=== PATIENT | female | born 1980 | race American Indian/Alaskan Native ===

== ENCOUNTER 2017-09-06 15:42 | Emergency (ER) | payer MEDICAID ==
[2017-09-06 15:50] VITALS: PULSE 89; TEMP 98.1
--- NOTE | 2017-09-06 16:13 | ED PDOC ---
Arrival/HPI - General Chief Complaint: Flu-like Symptoms Time Seen by Provider: 09/06/17 15:53 Historian: Patient - History of Present Illness Narrative History of Present Illness (Text): 09/06/17 16:09 89yo female with PMHx of hypertension and chronic back pain secondary to herniated disc present with few days history of lower back pain that radiates to her left lower leg. States she have had the back pain before, but not with radiation to lower extremity. Patient is crampy/sharp, with movement, 6/10. states she was taking OTC analgesic without relieve. Denies abdominal pain, trauma, ripping/tearing upper back pain, urinary/fecal incontinence, saddle anesthesia, any other complaint. Past Medical History - Provider Review Nursing Documentation Reviewed: Yes - Cardiac Hx Cardiac Disorders: Yes Hx Hypertension: Yes - Pulmonary Hx Respiratory Disorders: Yes Hx Asthma: Yes - Neurological Hx Neurological Disorder: No - HEENT Hx HEENT Disorder: No - Renal Hx Renal Disorder: No - Endocrine/Metabolic Hx Endocrine Disorders: No - Hematological/Oncological Hx Blood Disorders: No - Integumentary Hx Dermatological Disorder: No - Musculoskeletal/Rheumatological Hx Musculoskeletal Disorders: Yes Hx Back Pain: Yes - Gastrointestinal Hx Gastrointestinal Disorders: No - Genitourinary/Gynecological Hx Genitourinary Disorders: No - Psychiatric Hx Psychophysiologic Disorder: No Hx Substance Use: No - Surgical History Hx Hysterectomy: Yes Other/Comment: TUMMY TUCK - Anesthesia Hx Anesthesia: Yes Family/Social History - Physician Review Nursing Documentation Reviewed: Yes Family/Social History: Unknown Family HX Smoking Status: Never Smoked Hx Alcohol Use: No Hx Substance Use: No Allergies/Home Meds Allergies/Adverse Reactions: Allergies No Known Allergies Allergy (Verified 09/06/17 15:44) Home Medications: Home Meds Medication Instructions Recorded Confirmed Ibuprofen Susp [Motrin Oral Susp] 600 mg PO Q6 09/06/17 09/06/17 Review of Systems - Physician Review All systems were reviewed & negative as marked: Yes - Review of Systems Constitutional: Normal Eyes: Normal ENT: Normal Respiratory: Normal Cardiovascular: Normal Gastrointestinal: Normal Genitourinary Female: Normal Musculoskeletal: Back Pain Skin: Normal Neurological: Normal Endocrine: Normal Hemo/Lymphatic: Normal Psychiatric: Normal Physical Exam Vital Signs Reviewed: Yes Vital Signs Temp Pulse Resp BP Pulse Ox 09/06/17 15:45 98.1 F 89 16 161/106 H 97 Temperature: Afebrile Blood Pressure: Normal Pulse: Regular Respiratory Rate: Normal Appearance: Positive for: Well-Appearing, Non-Toxic, Comfortable Pain Distress: None Mental Status: Positive for: Alert and Oriented X 3 - Systems Exam Head: Present: Atraumatic, Normocephalic Pupils: Present: PERRL Extroacular Muscles: Present: EOMI Conjunctiva: Present: Normal Mouth: Present: Moist Mucous Membranes Neck: Present: Normal Range of Motion Respiratory/Chest: Present: Clear to Auscultation, Good Air Exchange. No: Respiratory Distress, Accessory Muscle Use Cardiovascular: Present: Regular Rate and Rhythm, Normal S1, S2. No: Murmurs Abdomen: Present: Normal Bowel Sounds. No: Tenderness, Distention, Peritoneal Signs Back: Present: Paraspinal Tenderness (Diffuse paralumar tenderness), Pain with Leg Raise (Left leg). No: Midline Tenderness Upper Extremity: Present: Normal Inspection. No: Cyanosis, Edema Lower Extremity: Present: Normal Inspection. No: Edema Neurological: Present: GCS=15, CN II-XII Intact, Speech Normal Skin: Present: Warm, Dry, Normal Color. No: Rashes Psychiatric: Present: Alert, Oriented x 3, Normal Insight, Normal Concentration Medical Decision Making ED Course and Treatment: 09/06/17 17:09 PT in ED for stated history. On re evaluation she notes her pain improved in ED with medication. She was ambulatory and neurologically intact. She will be DC home with a rx of Naprosyn and flexeril. Referred to her PMD. - Medication Orders Current Medication Orders: Discontinued Medications Cyclobenzaprine HCl (Flexeril) 10 mg PO STAT STA Stop: 09/06/17 16:16 Last Admin: 09/06/17 16:26 Dose: 10 mg Ketorolac Tromethamine (Toradol) 60 mg IM STAT STA Stop: 09/06/17 16:16 Last Admin: 09/06/17 16:29 Dose: [address] [facility] Pain Assessment Document 09/06/17 16:29 [email or web address] (Rec: 09/06/17 16:[email or web address] [facility] [id number]) Pain Reassessment Is this a pain reassessment? No Sleep Is patient sleeping during reassessment? No Presence of Pain Presence of Pain Yes Pain Scale Used Pain Scale Used Numeric Location Upper or Lower Lower Pain Location Body Site Back Description Description Constant Intensity of Pain at present 8 Pain Behavior Facial Grimacing Aggravating Factors Changing Position Alleviating Factors/Management Position Change Techniques Alleviating Factors Medication IM Administration Charges Document 09/06/17 16:29 [email or web address] (Rec: 09/06/17 16:[email or web address] [facility] [place]-[id number]) Injection Site MAR Injection Site Left Gluteus Devon Charges for Administration # of IM Administrations 1 Disposition/Present on Arrival - Present on Arrival Any Indicators Present on Arrival: No History of DVT/PE: No History of Uncontrolled Diabetes: No Urinary Catheter: No History of Decub. Ulcer: No History Surgical Site Infection Following: None - Disposition Have Diagnosis and Disposition been Completed?: Yes Diagnosis: Sciatica, Back pain Disposition: HOME/ ROUTINE Disposition Time: 17:10 Patient Plan: Discharge Patient Problems: Current Active Problems Problem Status Onset Back pain Acute Sciatica Acute Condition: STABLE Discharge Instructions (ExitCare): Lumbar Radiculopathy (ED), Back Pain (ED) Additional Instructions: Follow up with your Doctor Return to ED for any new symptoms Prescriptions: Cyclobenzaprine [Cyclobenzaprine HCl] 10 mg PO TID #12 tab Naproxen [Naprosyn] 500 mg PO BID #20 tablet Forms: [employer] (Andorran)
[2017-09-06 17:20] VITALS: BP 149/92; RESP 18; O2SAT 99
== END 2017-09-06 17:20 | disposition home or self-care (01) ==
LOC: ED 15:42
DX: M54.40 Lumbago with sciatica, unspecified side (principal)
CPT/HCPCS: 96372; 99283; J1885

== ENCOUNTER 2018-05-23 19:41 | Inpatient (IN) | payer MEDICAID ==
[2018-05-23] MEDS ORDERED: Sodium Chloride 0.9% 1,000 ML IV STA (20:34)
[2018-05-23 21:09] LABS: PH,URINE 6.5 (4.7-8.0); URINE APPEARANCE CLEAR (CLEAR); URINE BILIRUBIN NEGATIVE (NEGATIVE); URINE BLOOD TRACE-INTACT (NEGATIVE); URINE COLOR LIGHT YELLOW (YELLOW); URINE GLUCOSE (UA) NEGATIVE (NEGATIVE); URINE LEUKOCYTE ESTERASE TRACE Leu/uL (NEGATIVE); URINE PROTEIN NEGATIVE mg/dL (<30 mg/dL); URINE UROBILINOGEN 0.2 E.U./dL (<1 E.U./dL)
[2018-05-23 21:23] LABS: URINE BACTERIA NEG (NEG); URINE EPITHELIAL CELLS 0 - 2 /hpf (0-5); URINE RBC 0 - 2 /hpf (0-2); URINE WBC 0 - 2 /hpf (0-6)
[2018-05-23 21:41] LABS: BASO # 0.01 K/mm3 (0.0-2.0); BASO % 0.1 % (0.0-3.0); EOS # 0.2 (0.0-0.7); EOS % 1.1 % (1.5-5.0); GRAN # 9.56 (1.4-6.5); GRAN % 60.5 % (50.0-68.0); HEMOGLOBIN 15.5 g/dL (12.0-16.0); LYMPH # 4.9 (1.2-3.4); LYMPH % 30.7 % (22.0-35.0); MEAN CELL VOLUME 94.8 fl (80.0-105.0); MEAN CORPUSCULAR HGB CONC 33.8 g/dl (31.0-37.0); MEAN PLATELET VOLUME 10.2 fl (7.0-11.0); MONO # 1.2 (0.1-0.6); MONO % 7.6 % (1.0-6.0); RBC 4.84 10^6/uL (3.5-6.1); RED CELL DISTRIBUTION WIDTH 13.6 % (11.5-14.5); WHITE BLOOD COUNT 15.8 10^3/uL (4.5-11.0)
[2018-05-23 21:48] LABS: INR 0.99; PARTIAL THROMBOPLASTIN TIME 29.8 Seconds (25.1-36.5); PROTHROMBIN TIME 11.3 SECONDS (9.4-12.5)
[2018-05-23 21:50] LABS: ALB/GLOB RATIO 1.3 (1.1-1.8); ALBUMIN 4.2 g/dL (3.0-4.8); ALT/SGPT 23 U/L (7-56); AST/SGOT 15 U/L (14-36); BLOOD UREA NITROGEN 22 mg/dL (7-21); CALCIUM 9.6 mg/dL (8.4-10.5); GFR NON-AFRICAN AMERICAN > 60; LIPASE 1003 U/L (23-300)
--- NOTE | 2018-05-23 22:04 | ED PDOC ---
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 Notes constant pain worse postprandial. No relieving factors. +Nausea. Denies vomiting, diarrhea, constipation, fever,chills, urinary symptoms, chest pain, SOB, diaphoresis, ripping/tearing upper back pain, any other complaint. <Edis Zavala - Last Filed: 05/23/18 23:06> - General Chief Complaint: Abdominal Pain Time Seen by Provider: 05/23/18 20:19 Past Medical History - Provider Review Nursing Documentation Reviewed: Yes - Cardiac Hx Cardiac Disorders: Yes Hx Hypertension: Yes - Pulmonary Hx Respiratory Disorders: Yes Hx Asthma: Yes - Neurological Hx Neurological Disorder: No - HEENT Hx HEENT Disorder: No - Renal Hx Renal Disorder: No - Endocrine/Metabolic Hx Endocrine Disorders: No - Hematological/Oncological Hx Blood Disorders: No - Integumentary Hx Dermatological Disorder: No - Musculoskeletal/Rheumatological Hx Musculoskeletal Disorders: Yes Hx Back Pain: Yes - Gastrointestinal Hx Gastrointestinal Disorders: Yes Hx Constipation: Yes - Genitourinary/Gynecological Hx Genitourinary Disorders: No - Psychiatric Hx Psychophysiologic Disorder: No Hx Substance Use: No - Surgical History Hx Hysterectomy: Yes Other/Comment: TUMMY TUCK; liposuction - Anesthesia Hx Anesthesia: Yes <Edis Zavala - Last Filed: 05/23/18 23:06> Family/Social History - Physician Review Nursing Documentation Reviewed: Yes Family/Social History: Unknown Family HX Smoking Status: Never Smoked Hx Alcohol Use: No Hx Substance Use: No <Edis Zavala A - Last Filed: 05/23/18 23:06> Allergies/Home Meds <Ariel Quezada - Last Filed: 05/23/18 22:55> <Edis Zavala A - Last Filed: 05/23/18 23:06> Allergies/Adverse Reactions: Allergies No Known Allergies Allergy (Verified 09/06/17 15:44) Home Medications: Home Meds Medication Instructions Recorded Confirmed RX: Hydrochlorothiazide [Microzide] 1 cap PO DAILY 05/23/18 05/23/18 RX: amLODIPine [Norvasc] 5 mg PO DAILY 05/23/18 05/23/18 Review of Systems - Physician Review All systems were reviewed & negative as marked: Yes - Review of Systems Constitutional: Normal Eyes: Normal ENT: Normal Respiratory: Normal Cardiovascular: Normal Gastrointestinal: Abdominal Pain, Nausea. absent: Constipation, Diarrhea, Vomiting, Hematemesis Genitourinary Female: Normal Musculoskeletal: Normal Skin: Normal Neurological: Normal Endocrine: Normal Hemo/Lymphatic: Normal Psychiatric: Normal <LucasEdis A - Last Filed: 05/23/18 23:06> Physical Exam Vital Signs Temp Pulse Resp BP Pulse Ox 05/23/18 22:44 100 H 18 149/86 97 05/23/18 19:52 98.6 F 105 H 18 144/97 H 98 <Ariel Quezada - Last Filed: 05/23/18 22:55> Vital Signs Reviewed: Yes Vital Signs Temp Pulse Resp BP Pulse Ox 05/23/18 19:52 98.6 F 105 H 18 144/97 H 98 Temperature: Afebrile Blood Pressure: Normal Pulse: Regular Respiratory Rate: Normal Appearance: Positive for: Well-Appearing, Non-Toxic, Comfortable Pain Distress: None Mental Status: Positive for: Alert and Oriented X 3 - Systems Exam Head: Present: Atraumatic, Normocephalic Pupils: Present: PERRL Extroacular Muscles: Present: EOMI Conjunctiva: Present: Normal Mouth: Present: Moist Mucous Membranes Neck: Present: Normal Range of Motion Respiratory/Chest: Present: Clear to Auscultation, Good Air Exchange. No: Respiratory Distress, Accessory Muscle Use Cardiovascular: Present: Regular Rate and Rhythm, Normal S1, S2. No: Murmurs Abdomen: Present: Tenderness (Epigastric/RUQ), Distention (Upper abdomen), Guarding (Voluntary), Other (Soft). No: Normal Bowel Sounds (Hyperactive x2), Peritoneal Signs, Rebound, McBurney's Point Tender, Rovsing's Sign Present Back: Present: Normal Inspection Upper Extremity: Present: Normal Inspection. No: Cyanosis, Edema Lower Extremity: Present: Normal Inspection. No: Edema Neurological: Present: GCS=15, CN II-XII Intact, Speech Normal Skin: Present: Warm, Dry, Normal Color. No: Rashes Psychiatric: Present: Alert, Oriented x 3, Normal Insight, Normal Concentration <Diru,Happiness A - Last Filed: 05/23/18 23:06> Medical Decision Making - Lab Interpretations Lab Results: 05/23/18 21:30 05/23/18 21:30 Lab Results 05/23/18 21:30: Alcohol, Quantitative < 10 05/23/18 21:30: Troponin I < 0.01 05/23/18 21:30: Sodium 139, Potassium 3.8, Chloride 96 L, Carbon Dioxide 33, Anion Gap 13, BUN 22 H, Creatinine 0.6 L, Est GFR ( Amer) > 60, Est GFR (Non-Af Amer) > 60, Random Glucose 115 H, Calcium 9.6, Magnesium 2.2, Total Bilirubin 0.3, AST 15, ALT 23, Alkaline Phosphatase 85, Total Protein 7.5, A lbumin 4.2, Globulin 3.3, Albumin/Globulin Ratio 1.3, Lipase 1003 H 05/23/18 21:30: PT 11.3, INR 0.99, APTT 29.8 05/23/18 21:30: WBC 15.8 H, RBC 4.84, Hgb 15.5, Hct 45.9, MCV 94.8, MCH 32.0, MCHC 33.8, RDW 13.6, Plt Count 322, MPV 10.2, Gran % 60.5, Lymph % (Auto) 30.7, [place] % (Auto) 7.6 H, Eos % (Auto) 1.1 L, Baso % (Auto) 0.1, Gran # 9.56 H, Lymph # (Auto) 4.9 H, [place] # (Auto) 1.2 H, Eos # (Auto) 0.2, Baso # (Auto) 0.01 05/23/18 20:40: Urine Color Light yellow, Urine Appearance Clear, Urine pH 6.5, Ur Specific [place] 1.015, Urine Protein Negative, Urine Glucose (UA) Negative, Urine Ketones Negative, Urine Blood Trace-intact H, Urine Nitrate Negative, Urine Bilirubin Negative, Urine Urobilinogen 0.2, Ur Leukocyte Esterase Trace H, Urine RBC 0 - 2, Urine WBC 0 - 2, Ur Epithelial Cells 0 - 2, Urine Bacteria Neg - RAD Interpretation Radiology Orders: 05/23/18 20:38 ABDOMEN COMPLETE [US] Stat - Medication Orders Current Medication Orders: Amlodipine Besylate (Norvasc) 5 mg PO DAILY JOSE Hydrochlorothiazide (Microzide) 12.5 mg PO DAILY JOSE Hydromorphone HCl (Dilaudid) 0.5 mg IVP Q4H PRN PRN Reason: Pain, moderate (4-7) Dextrose/Lactated Ringer's (Dextrose 5%/Lactated Ringer's) 1,000 mls @ 150 mls/hr IV .Q6H40M JOSE Ondansetron HCl (Zofran Inj) 4 mg IVP Q6H PRN PRN Reason: Nausea/Vomiting Pantoprazole Sodium (Protonix Inj) 40 mg IVP DAILY JOSE Discontinued Medications Famotidine (Pepcid) 20 mg IVP STAT STA Stop: 05/23/18 20:35 Last Admin: 05/23/18 21:30 Dose: 20 mg IVP Administration Document 05/23/18 21:30 CNR (Rec: 05/23/18 21:31 CNR [id number]) Charges for Administration # of IVP Administrations 1 Sodium Chloride (Sodium Chloride 0.9%) 1,000 mls @ 1,000 mls/hr IV .Q1H STA Stop: 05/23/18 21:33 Last Admin: 05/23/18 21:27 Dose: 1,000 mls/hr eMAR Start Stop Document 05/23/18 21:27 CNR (Rec: 05/23/18 21:30 CNR [id number]) Intravenous Solution Start Date 05/23/18 Start Time 21:30 End Date 05/23/18 End time 22:30 Total Infusion Time 60 Ketorolac Tromethamine (Toradol) 30 mg IVP STAT STA Stop: 05/23/18 21:52 Last Admin: 05/23/18 22:08 Dose: 30 mg MAR Pain Assessment Document 05/23/18 22:08 CNR (Rec: 05/23/18 22:08 CNR [id number]) Pain Reassessment Is this a pain reassessment? No IVP Administration Document 05/23/18 22:08 CNR (Rec: 05/23/18 22:08 CNR [id number]) Charges for Administration # of IVP Administrations 1 <Ariel Quezada - Last Filed: 05/23/18 22:55> ED Course and Treatment: 05/23/18 22:05 38yo female in ED for RUQ/Epigastric pain since this morning. She appeared in Pain in ED. Labs CXR EKG Gallbladder US 1L NS, Zofran, Toradol 30mg EKG Sinus tachy @101bpm CXR NAD Labs reviewed and leukocytosis and elevated Lipase was noted. Pt's pain was controlled with medication in ED Pt will be admitted for Pancreatitis US result pending Case was DW Dr. Dinh and pt was admitted to the service. Result and plan was DW the pt and she agreed. - Lab Interpretations Lab Results: 05/23/18 21:30 05/23/18 21:30 Lab Results 05/23/18 21:30: Sodium 139, Potassium 3.8, Chloride 96 L, Carbon Dioxide 33, Anion Gap 13, BUN 22 H, Creatinine 0.6 L, Est GFR ( Amer) > 60, Est GFR (Non-Af Amer) > 60, Random Glucose 115 H, Calcium 9.6, Magnesium 2.2, Total Bili ramos 0.3, AST 15, ALT 23, Alkaline Phosphatase 85, Total Protein 7.5, Albumin 4.2, Globulin 3.3, Albumin/Globulin Ratio 1.3, Lipase 1003 H 05/23/18 21:30: PT 11.3, INR 0.99, APTT 29.8 05/23/18 21:30: WBC 15.8 H, RBC 4.84, Hgb 15.5, Hct 45.9, MCV 94.8, MCH 32.0, MCHC 33.8, RDW 13.6, Plt Count 322, MPV 10.2, Gran % 60.5, Lymph % (Auto) 30.7, [place] % (Auto) 7.6 H, Eos % (Auto) 1.1 L, Baso % (Auto) 0.1, Gran # 9.56 H, Lymph # (Auto) 4.9 H, [place] # (Auto) 1.2 H, Eos # (Auto) 0.2, Baso # (Auto) 0.01 05/23/18 20:40: Urine Color Light yellow, Urine Appearance Clear, Urine pH 6.5, Ur Specific [place] 1.015, Urine Protein Negative, Urine Glucose (UA) Negative, Urine Ketones Negative, Urine Blood Trace-intact H, Urine Nitrate Negative, Urine Bilirubin Negative, Urine Urobilinogen 0.2, Ur Leukocyte Esterase Trace H, Urine RBC 0 - 2, Urine WBC 0 - 2, Ur Epithelial Cells 0 - 2, Urine Bacteria Neg - RAD Interpretation Radiology Orders: 05/23/18 20:38 ABDOMEN COMPLETE [US] Stat 05/23/18 21:58 CHEST PORTABLE [RAD] Stat - Medication Orders Current Medication Orders: Discontinued Medications Famotidine (Pepcid) 20 mg IVP STAT STA Stop: 05/23/18 20:35 Last Admin: 05/23/18 21:30 Dose: 20 mg IVP Administration Document 05/23/18 21:30 CNR (Rec: 05/23/18 21:31 CNR [id number]) Charges for Administration # of IVP Administrations 1 Sodium Chloride (Sodium Chloride 0.9%) 1,000 mls @ 1,000 mls/hr IV .Q1H STA Stop: 05/23/18 21:33 Last Admin: 05/23/18 21:27 Dose: 1,000 mls/hr eMAR Start Stop Document 05/23/18 21:27 CNR (Rec: 05/23/18 21:30 CNR [id number]) Intravenous Solution Start Date 05/23/18 Start Time 21:30 End Date 05/23/18 End time 22:30 Total Infusion Time 60 Ketorolac Tromethamine (Toradol) 30 mg IVP STAT STA Stop: 05/23/18 21:52 <Edis Zavala - Last Filed: 05/23/18 23:06> - PA / GUIDANCE ADVISER / Resident Statement CYNTHIA has reviewed & agrees with the documentation as recorded. CYNTHIA has examined the patient and agrees with the treatment plan. <Ariel Quezada - Last Filed: 05/23/18 22:55> Disposition/Present on Arrival <Ariel Quezada - Last Filed: 05/23/18 22:55> - Present on Arrival Any Indicators Present on Arrival: No History of DVT/PE: No History of Uncontrolled Diabetes: No Urinary Catheter: No History of Decub. Ulcer: No History Surgical Site Infection Following: None - Disposition Have Diagnosis and Disposition been Completed?: Yes Disposition Time: 22:00 Patient Plan: Admission <Edis Zavala - Last Filed: 05/23/18 23:06> - Disposition Diagnosis: Acute pancreatitis, Leukocytosis Disposition: HOSPITALIZED Patient Problems: Current Active Problems Problem Status Onset Acute pancreatitis Acute Leukocytosis Acute Condition: FAIR
--- NOTE | 2018-05-23 22:44 | CP.PCM.HP ---
<Alice Smith - Last Filed: 05/24/18 03:47> History of Present Illness - History of Present Illness History of Present Illness: Alice Smith, PGY1 Hospital H&P This is a 38 year old female with PMH of HTN, samuels's palsy and chronic back pain from a herniated disc presenting to the ED for epigastric abdominal pain that began at 8am this morning. Patient states pain started after eating eggs and bread, started gradually, rated 7/10 at worst, constant, radiates to the LUQ, characterized as stabbing/burning and food makes the pain worse. Epigastric pain is associated with nausea, constipation and left sided back pain. Last bowel movement was this morning and stool consistency was normal without blood or melena. She denies having similar epigastric pain in past. She also states she has had intermittent chest pain that began one week ago at rest, characterized as sharp, radiates to the left arm and left side of the face and resolved after a few days and described as similar to previous episodes of samuels's palsy. Currently she admits to mild epigastric pain and nausea, and denies CP, SOB, fevers, headaches, chills, vomiting, urinary complaints, diarrhea, melena, recent trauma, sickness, and travel. 12 point ROS noted above, otherwise unremarkable. PMD: Kolton Huffman PMH: as above SH: denies smoking, drinking and drugs Sx: hysterectomy in 2009, liposuction in 2016 FH: HTN All: NKDA Meds: norvasc and HCTZ Pharm: [facility] in [place] on [address] LMP: 2009, no irregular bleeding Present on Admission - Present on Admission Any Indicators Present on Admission: No Past Patient History - Past Social History Smoking Status: Never Smoked - CARDIAC Hx Cardiac Disorders: Yes Hx Hypertension: Yes - PULMONARY Hx Respiratory Disorders: Yes Hx Asthma: Yes - NEUROLOGICAL Hx Neurological Disorder: No - HEENT Hx HEENT Problems: No - RENAL Hx Chronic Kidney Disease: No - ENDOCRINE/METABOLIC Hx Endocrine Disorders: No - HEMATOLOGICAL/ONCOLOGICAL Hx Blood Disorders: No - INTEGUMENTARY Hx Dermatological Problems: No - MUSCULOSKELETAL/RHEUMATOLOGICAL Hx Musculoskeletal Disorders: Yes Hx Back Pain: Yes - GASTROINTESTINAL Hx Gastrointestinal Disorders: Yes Hx Constipation: Yes - GENITOURINARY/GYNECOLOGICAL Hx Genitourinary Disorders: No - PSYCHIATRIC Hx Psychophysiologic Disorder: No Hx Substance Use: No - SURGICAL HISTORY Hx Hysterectomy: Yes Other/Comment: TUMMY TUCK; liposuction - ANESTHESIA Hx Anesthesia: Yes Meds Allergies/Adverse Reactions: Allergies Allergy/AdvReac Type Severity Reaction Status Date / Time No Known Allergies Allergy Verified 09/06/17 15:44 Physical Exam - Constitutional Appears: No Acute Distress - Head Exam Head Exam: ATRAUMATIC, NORMAL INSPECTION Additional comments: no facial drooping, slurring or pupil abnormalities appreciated - Eye Exam Eye Exam: EOMI Pupil Exam: PERRL - ENT Exam ENT Exam: Mucous Membranes Dry - Respiratory Exam Respiratory Exam: Clear to Auscultation Bilateral. absent: Wheezes - Cardiovascular Exam Cardiovascular Exam: REGULAR RHYTHM, +S1, +S2 - GI/Abdominal Exam GI & Abdominal Exam: Normal Bowel Sounds. absent: Distended, Guarding Additional comments: diffuse abdominal tenderness appreciated to deep palpation, worse in the epigastric region - Extremities Exam Extremities exam: Positive for: normal inspection. Negative for: calf tenderness - Back Exam Back exam: NORMAL INSPECTION. absent: CVA tenderness (L), CVA tenderness (R) - Neurological Exam Neurological exam: Alert, CN II-XII Intact, Oriented x3 - Skin Skin Exam: Normal Color, Warm Results - Vital Signs Recent Vital Signs: Last Vital Signs Temp 98.6 F 05/23/18 19:52 Pulse 105 H 05/23/18 19:52 Resp 18 05/23/18 19:52 BP 144/97 H 05/23/18 19:52 Pulse Ox 98 05/23/18 19:52 - Labs Result Diagrams: 05/23/18 21:30 05/23/18 21:30 Labs: Laboratory Results - last 24 hr 05/23/18 05/23/18 05/23/18 20:40 21:30 21:30 WBC 15.8 H RBC 4.84 Hgb 15.5 Hct 45.9 MCV 94.8 MCH 32.0 MCHC 33.8 RDW 13.6 Plt Count 322 MPV 10.2 Gran % 60.5 Lymph % (Auto) 30.7 [place] % (Auto) 7.6 H Eos % (Auto) 1.1 L Baso % (Auto) 0.1 Gran # 9.56 H Lymph # (Auto) 4.9 H [place] # (Auto) 1.2 H Eos # (Auto) 0.2 Baso # (Auto) 0.01 PT 11.3 INR 0.99 APTT 29.8 Sodium Potassium Chloride Carbon Dioxide Anion Gap BUN Creatinine Est GFR ( Amer) Est GFR (Non-Af Amer) Random Glucose Calcium Magnesium Total Bilirubin AST ALT Alkaline Phosphatase Total Protein Albumin Globulin Albumin/Globulin Ratio Lipase Urine Color Light yellow Urine Appearance Clear Urine pH 6.5 Ur Specific [place] 1.015 Urine Protein Negative Urine Glucose (UA) Negative Urine Ketones Negative Urine Blood Trace-intact H Urine Nitrate Negative Urine Bilirubin Negative Urine Urobilinogen 0.2 Ur Leukocyte Esterase Trace H Urine RBC 0 - 2 Urine WBC 0 - 2 Ur Epithelial Cells 0 - 2 Urine Bacteria Neg 05/23/18 21:30 WBC RBC Hgb Hct MCV MCH MCHC RDW Plt Count MPV Gran % Lymph % (Auto) [place] % (Auto) Eos % (Auto) Baso % (Auto) Gran # Lymph # (Auto) [place] # (Auto) Eos # (Auto) Baso # (Auto) PT INR APTT Sodium 139 Potassium 3.8 Chloride 96 L Carbon Dioxide 33 Anion Gap 13 BUN 22 H Creatinine 0.6 L Est GFR ( Amer) > 60 Est GFR (Non-Af Amer) > 60 Random Glucose 115 H Calcium 9.6 Magnesium 2.2 Total Bilirubin 0.3 AST 15 ALT 23 Alkaline Phosphatase 85 Total Protein 7.5 Albumin 4.2 Globulin 3.3 Albumin/Globulin Ratio 1.3 Lipase 1003 H Urine Color Urine Appearance Urine pH Ur Specific [place] Urine Protein Urine Glucose (UA) Urine Ketones Urine Blood Urine Nitrate Urine Bilirubin Urine Urobilinogen Ur Leukocyte Esterase Urine RBC Urine WBC Ur Epithelial Cells Urine Bacteria Assessment & Plan - Assessment and Plan (Free Text) Assessment: This is a 38 year old female with PMH of HTN, samuels's palsy and chronic back pain from a herniated disc presenting to the ED for epigastric abdominal pain that b nuno at 8am this morning. Plan: Intractable abdominal pain: -likely 2/2 pancreatitis -elevated lipase, alcohol <10 -NPO -LR at 150cc -zofran prn, dilaudid prn -Abd US pending final read -GI on consult, Dr. Newsome Chest pain: -currently resolved -EKG on admission showed ST at 101bpm with no ST changes -serial troponins pending, initial troponin <0.01 -lipid panel, A1c pending -UDS pending Leukocytosis: -likely reactive -CXR shows no acute disease, interpreted by me. F/u official read -CTAP pending final read -U/A is unremarkable -urine, blood culture pending Hx of HTN: -continue norvasc, HCTZ Hx of Samuels's palsy: -lyme panel pending PPX with protonix and SCD Patient seen and discussed with attending, Dr. Dinh <Angelito Dinh - Last Filed: 05/24/18 21:36> Results - Vital Signs Recent Vital Signs: Last Vital Signs Temp 98.2 F 05/24/18 14:00 Pulse 85 05/24/18 14:00 Resp 20 05/24/18 14:00 BP 140/100 H 05/24/18 14:00 Pulse Ox 96 05/24/18 14:00 - Labs Result Diagrams: 05/24/18 04:35 05/24/18 04:35 Labs: Laboratory Results - last 24 hr 05/23/18 05/23/18 05/23/18 21:30 21:30 21:30 WBC 15.8 H RBC 4.84 Hgb 15.5 Hct 45.9 MCV 94.8 MCH 32.0 MCHC 33.8 RDW 13.6 Plt Count 322 MPV 10.2 Gran % 60.5 Lymph % (Auto) 30.7 [place] % (Auto) 7.6 H Eos % (Auto) 1.1 L Baso % (Auto) 0.1 Gran # 9.56 H Lymph # (Auto) 4.9 H [place] # (Auto) 1.2 H Eos # (Auto) 0.2 Baso # (Auto) 0.01 PT 11.3 INR 0.99 APTT 29.8 Sodium 139 Potassium 3.8 Chloride 96 L Carbon Dioxide 33 Anion Gap 13 BUN 22 H Creatinine 0.6 L Est GFR ( Amer) > 60 Est GFR (Non-Af Amer) > 60 Random Glucose 115 H Hemoglobin A1c Calcium 9.6 Phosphorus Magnesium 2.2 Total Bilirubin 0.3 AST 15 ALT 23 Alkaline Phosphatase 85 Troponin I Total Protein 7.5 Albumin 4.2 Globulin 3.3 Albumin/Globulin Ratio 1.3 Triglycerides Cholesterol LDL Cholesterol Direct HDL Cholesterol Lipase 1003 H Urine Opiates Screen Urine Methadone Screen Ur Barbiturates Screen Ur Phencyclidine Scrn Ur Amphetamines Screen U Benzodiazepines Scrn U Oth Cocaine Metabols U Cannabinoids Screen Alcohol, Quantitative 05/23/18 05/23/18 05/23/18 21:30 21:30 22:59 WBC RBC Hgb Hct MCV MCH MCHC RDW Plt Count MPV Gran % Lymph % (Auto) [place] % (Auto) Eos % (Auto) Baso % (Auto) Gran # Lymph # (Auto) [place] # (Auto) Eos # (Auto) Baso # (Auto) PT INR APTT Sodium Potassium Chloride Carbon Dioxide Anion Gap BUN Creatinine Est GFR ( Amer) Est GFR (Non-Af Amer) Random Glucose Hemoglobin A1c Calcium Phosphorus Magnesium Total Bilirubin AST ALT Alkaline Phosphatase Troponin I < 0.01 Total Protein Albumin Globulin Albumin/Globulin Ratio Triglycerides Cholesterol LDL Cholesterol Direct HDL Cholesterol Lipase Urine Opiates Screen Negative Urine Methadone Screen Negative Ur Barbiturates Screen Negative Ur Phencyclidine Scrn Negative Ur Amphetamines Screen Negative U Benzodiazepines Scrn Negative U Oth Cocaine Metabols Negative U Cannabinoids Screen Negative Alcohol, Quantitative < 10 05/24/18 05/24/18 05/24/18 04:35 04:35 04:35 WBC 12.8 H RBC 4.47 Hgb 14.2 Hct 42.1 MCV 94.2 MCH 31.8 MCHC 33.7 RDW 13.4 Plt Count 300 MPV 10.1 Gran % 55.9 Lymph % (Auto) 34.9 [place] % (Auto) 7.6 H Eos % (Auto) 1.5 Baso % (Auto) 0.1 Gran # 7.19 H Lymph # (Auto) 4.5 H [place] # (Auto) 1.0 H Eos # (Auto) 0.2 Baso # (Auto) 0.01 PT INR APTT Sodium 136 Potassium 3.5 L Chloride 99 Carbon Dioxide 30 Anion Gap 10 BUN 14 Creatinine 0.5 L Est GFR ( Amer) > 60 Est GFR (Non-Af Amer) > 60 Random Glucose 118 H Hemoglobin A1c 5.6 Calcium 8.6 Phosphorus 3.6 Magnesium 2.1 Total Bilirubin 0.4 AST 15 ALT 20 Alkaline Phosphatase 63 Troponin I < 0.01 Total Protein 6.7 Albumin 3.6 Globulin 3.1 Albumin/Globulin Ratio 1.2 Triglycerides 218 H Cholesterol 192 LDL Cholesterol Direct 103 HDL Cholesterol 38 Lipase Urine Opiates Screen Urine Methadone Screen Ur Barbiturates Screen Ur Phencyclidine Scrn Ur Amphetamines Screen U Benzodiazepines Scrn U Oth Cocaine Metabols U Cannabinoids Screen Alcohol, Quantitative 05/24/18 10:15 WBC RBC Hgb Hct MCV MCH MCHC RDW Plt Count MPV Gran % Lymph % (Auto) [place] % (Auto) Eos % (Auto) Baso % (Auto) Gran # Lymph # (Auto) [place] # (Auto) Eos # (Auto) Baso # (Auto) PT INR APTT Sodium Potassium Chloride Carbon Dioxide Anion Gap BUN Creatinine Est GFR ( Amer) Est GFR (Non-Af Amer) Random Glucose Hemoglobin A1c Calcium Phosphorus Magnesium Total Bilirubin AST ALT Alkaline Phosphatase Troponin I < 0.01 Total Protein Albumin Globulin Albumin/Globulin Ratio Triglycerides Cholesterol LDL Cholesterol Direct HDL Cholesterol Lipase Urine Opiates Screen Urine Methadone Screen Ur Barbiturates Screen Ur Phencyclidine Scrn Ur Amphetamines Screen U Benzodiazepines Scrn U Oth Cocaine Metabols U Cannabinoids Screen Alcohol, Quantitative Attending/Attestation - Attestation I have personally seen and examined this patient.: Yes I have fully participated in the care of the patient.: Yes I have reviewed all pertinent clinical information: Yes
[2018-05-23] MEDS: Dextrose 5%/Lactated Ringer's 1,000 ML IV SCH (23:15)
[2018-05-23] MEDS ORDERED: Iohexol 350 MG/100 ML VIAL ONE (23:36)
[2018-05-24 00:59] LABS: BARBITURATES, UR NEGATIVE (NEGATIVE); BENZODIAZEPINES, UR NEGATIVE (NEGATIVE); OPIATES, UR NEGATIVE (NEGATIVE); PHENCYCLIDINE, UR NEGATIVE (NEGATIVE)
[2018-05-24] MEDS: HYDROmorphone 0.5 mg/0.5 ml ISec IVP PRN ×3 (01:17→10:27)
[2018-05-24] MEDS ORDERED: DiphenhydrAMINE 50 mg/ml Inj IVP STA (01:39)
[2018-05-24 03:30] VITALS: BMI 31.0
[2018-05-24 04:55] LABS: BASO # 0.01 K/mm3 (0.0-2.0); BASO % 0.1 % (0.0-3.0); EOS # 0.2 (0.0-0.7); EOS % 1.5 % (1.5-5.0); GRAN # 7.19 (1.4-6.5); GRAN % 55.9 % (50.0-68.0); HEMOGLOBIN 14.2 g/dL (12.0-16.0); LYMPH # 4.5 (1.2-3.4); LYMPH % 34.9 % (22.0-35.0); MEAN CELL VOLUME 94.2 fl (80.0-105.0); MEAN CORPUSCULAR HEMOGLOBIN 31.8 pg (25.0-35.0); MEAN CORPUSCULAR HGB CONC 33.7 g/dl (31.0-37.0); MEAN PLATELET VOLUME 10.1 fl (7.0-11.0); MONO % 7.6 % (1.0-6.0); RBC 4.47 10^6/uL (3.5-6.1); RED CELL DISTRIBUTION WIDTH 13.4 % (11.5-14.5); WHITE BLOOD COUNT 12.8 10^3/uL (4.5-11.0)
[2018-05-24 05:10] LABS: ALB/GLOB RATIO 1.2 (1.1-1.8); ALBUMIN 3.6 g/dL (3.0-4.8); ALT/SGPT 20 U/L (7-56); AST/SGOT 15 U/L (14-36); BLOOD UREA NITROGEN 14 mg/dL (7-21); CALCIUM 8.6 mg/dL (8.4-10.5); GFR NON-AFRICAN AMERICAN > 60; HDL CHOLESTEROL 38 mg/dL (29-60)
[2018-05-24 05:11] LABS: LDL CHOLESTEROL 103 mg/dL (0-129); TROPONIN I < 0.01 ng/mL
[2018-05-24] MEDS: Dextrose 5%/Lactated Ringer's 1,000 ML IV SCH (06:17)
--- NOTE | 2018-05-24 09:26 | US ---
Date of service: 05/23/2018 HISTORY: epigastric/RUQ pain COMPARISON: 05/24/2018 CT abdomen and pelvis TECHNIQUE: Sonographic evaluation of the abdomen. FINDINGS: LIVER: Measures 15.7 cm. Hepatopedal blood flow. Fatty infiltration manifest ultrasonographically as increased echogenicity of the liver parenchyma. No mass. No intrahepatic bile duct dilatation. GALLBLADDER: Unremarkable. No gallstones. COMMON BILE DUCT: Measures 3.8 mm. No stones. No dilatation. PANCREAS: Unremarkable as visualized. No mass. No ductal dilatation. RIGHT KIDNEY: Measures 4.4 x 11.7cm. Normal echogenicity. No calculus, mass, or hydronephrosis. LEFT KIDNEY: Measures 6.1 x 12cm. Echogenic focus 3 x 9 mm upper pole without shadowing likely nonobstructing calculus. Adjacent simple cyst 1.7 x 2 cm. SPLEEN: Normal in size and contour. No mass. AORTA: No aneurysmal dilatation. IVC: Unremarkable. OTHER FINDINGS: None. IMPRESSION: No significant or acute findings to account for/ related to the clinical presentation. Additional benign and/or incidental findings described above. This includes nonobstructing calculus upper pole left kidney. Concordant findings (preliminary report) provided by [facility].
--- NOTE | 2018-05-24 09:35 | CT ---
Date of service: 05/24/2018 PROCEDURE: CT Abdomen and Pelvis with contrast HISTORY: r/o pancreatitis COMPARISON: None. TECHNIQUE: Contrast dose: 100 cc of Omni 350 Radiation dose: Total exam DLP = 717.02 mGy-cm. This CT exam was performed using one or more of the following dose reduction techniques: Automated exposure control, adjustment of the mA and/or kV according to patient size, and/or use of iterative reconstruction technique. FINDINGS: LOWER THORAX: Unremarkable. LIVER: Unremarkable. No gross lesion or ductal dilatation. GALLBLADDER AND BILE DUCTS: Unremarkable. PANCREAS: Unremarkable. No gross lesion or ductal dilatation. SPLEEN: Unremarkable. ADRENALS: Unremarkable. No mass. KIDNEYS AND URETERS: Unremarkable. No hydronephrosis. No solid mass. VASCULATURE: Unremarkable. No aortic aneurysm. No aortic atherosclerotic calcification or mural plaque present. BOWEL: Unremarkable. No obstruction. No gross mural thickening. Mild constipation APPENDIX: Normal appendix. PERITONEUM: Unremarkable. No free fluid. No free air. LYMPH NODES: Unremarkable. No enlarged lymph nodes. BLADDER: Unremarkable. REPRODUCTIVE: 3.4 cm right ovarian cyst BONES: No acute fracture. OTHER FINDINGS: The report concurs with the preliminary [facility] report IMPRESSION: No acute intra-abdominal findings
--- NOTE | 2018-05-24 10:42 | CP.PCM.CON ---
<Niko Munoz - Last Filed: 05/24/18 16:32> History of Present Illness - History of Present Illness History of Present Illness: PGY-4 GI Fellow Consult Note Pt is a 38 yo Hisp Female with h/o HTN, recent diagnosis of Samuels's Palsy presenting with abd pain. She states in the AM of 05/23 she started to feel sharp/burning, epigastic pain that would occasionally radiated to RUQ. Pain was constant and worse after PO intake. No alleviating factors. She reports associated nausea, but denied emesis, f/c, EtOH use, diarrhea nor constipation. She reports last BM was this AM and "normal." No prior endoscopic evaluation. 12 point ROS negative other than stated above MHx: See above SurgHx: Chris cuevas 2015 Meds: HCTZ, amlodipine FamHx: Denied GI problems SocHx: No EtOH use for 6 months (socially drinks), Denied tob/illicits All: NKDA Past Patient History - Past Social History Smoking Status: Never Smoked - CARDIAC Hx Cardiac Disorders: Yes Hx Hypertension: Yes - PULMONARY Hx Respiratory Disorders: Yes Hx Asthma: Yes - NEUROLOGICAL Hx Neurological Disorder: No - HEENT Hx HEENT Problems: No - RENAL Hx Chronic Kidney Disease: No - ENDOCRINE/METABOLIC Hx Endocrine Disorders: No - HEMATOLOGICAL/ONCOLOGICAL Hx Blood Disorders: No - INTEGUMENTARY Hx Dermatological Problems: No - MUSCULOSKELETAL/RHEUMATOLOGICAL Hx Musculoskeletal Disorders: Yes Hx Back Pain: Yes - GASTROINTESTINAL Hx Gastrointestinal Disorders: Yes Hx Constipation: Yes - GENITOURINARY/GYNECOLOGICAL Hx Genitourinary Disorders: No - PSYCHIATRIC Hx Psychophysiologic Disorder: No Hx Substance Use: No - SURGICAL HISTORY Hx Hysterectomy: Yes Other/Comment: CHRIS CUEVAS; liposuction - ANESTHESIA Hx Anesthesia: Yes Meds Allergies/Adverse Reactions: Allergies Allergy/AdvReac Type Severity Reaction Status Date / Time No Known Allergies Allergy Verified 09/06/17 15:44 - Medications Medications: Current Medications Amlodipine Besylate (Norvasc) 5 mg PO DAILY [facility] Last Admin: 05/24/18 09:26 Dose: 5 mg Hydrochlorothiazide (Microzide) 12.5 mg PO DAILY [facility] Last Admin: 05/24/18 09:27 Dose: 12.5 mg Hydromorphone HCl (Dilaudid) 0.5 mg IVP Q4H PRN PRN Reason: Pain, moderate (4-7) Last Admin: 05/24/18 10:27 Dose: 0.5 mg Dextrose/Lactated Ringer's (Dextrose 5%/Lactated Ringer's) 1,000 mls @ 150 mls/hr IV .Q6H40M [facility] Last Admin: 05/24/18 06:17 Dose: 150 mls/hr Ondansetron HCl (Zofran Inj) 4 mg IVP Q6H PRN PRN Reason: Nausea/Vomiting Last Admin: 05/24/18 09:27 Dose: 4 mg Pantoprazole Sodium (Protonix Inj) 40 mg IVP DAILY [facility] Last Admin: 05/24/18 09:28 Dose: 40 mg Physical Exam - Constitutional Appears: No Acute Distress, Other (uncomfortable) - Head Exam Head Exam: ATRAUMATIC Additional comments: +bells palsy on L - Eye Exam Eye Exam: absent: Conjunctival injection, Scleral icterus - ENT Exam ENT Exam: Mucous Membranes Dry, Normal External Ear Exam. absent: Mucous Membranes Moist - Respiratory Exam Respiratory Exam: Clear to Auscultation Bilateral, NORMAL BREATHING PATTERN. absent: Accessory Muscle Use, Respiratory Distress - Cardiovascular Exam Cardiovascular Exam: REGULAR RHYTHM, RRR - GI/Abdominal Exam GI & Abdominal Exam: Normal Bowel Sounds, Soft, Tenderness (ttp in epigastrum w/o guarding). absent: Bruit, Diminished Bowel Sounds, Distended, Firm, Guarding, Hernia, Organomegaly, Pulsatile Mass, Rigid - Rectal Exam Rectal Exam: Deferred - Extremities Exam Extremities exam: Positive for: normal inspection. Negative for: pedal edema - Neurological Exam Neurological exam: Alert, Oriented x3 - Psychiatric Exam Psychiatric exam: Normal Affect, Normal Mood - Skin Skin Exam: Normal Color, Warm Results - Vital Signs Recent Vital Signs: Last Vital Signs Temp 97.8 F 05/24/18 06:00 Pulse 80 05/24/18 09:26 Resp 20 05/24/18 06:00 BP 120/80 05/24/18 09:26 Pulse Ox 99 05/24/18 06:00 - Labs Result Diagrams: 05/24/18 04:35 05/24/18 04:35 Labs: Laboratory Results - last 24 hr 05/23/18 05/23/18 05/23/18 20:40 21:30 21:30 WBC 15.8 H RBC 4.84 Hgb 15.5 Hct 45.9 MCV 94.8 MCH 32.0 MCHC 33.8 RDW 13.6 Plt Count 322 MPV 10.2 Gran % 60.5 Lymph % (Auto) 30.7 [place] % (Auto) 7.6 H Eos % (Auto) 1.1 L Baso % (Auto) 0.1 Gran # 9.56 H Lymph # (Auto) 4.9 H [place] # (Auto) 1.2 H Eos # (Auto) 0.2 Baso # (Auto) 0.01 PT 11.3 INR 0.99 APTT 29.8 Sodium Potassium Chloride Carbon Dioxide Anion Gap BUN Creatinine Est GFR ( Amer) Est GFR (Non-Af Amer) Random Glucose Calcium Phosphorus Magnesium Total Bilirubin AST ALT Alkaline Phosphatase Troponin I Total Protein Albumin Globulin Albumin/Globulin Ratio Triglycerides Cholesterol LDL Cholesterol Direct HDL Cholesterol Lipase Urine Color Light yellow Urine Appearance Clear Urine pH 6.5 Ur Specific [place] 1.015 Urine Protein Negative Urine Glucose (UA) Negative Urine Ketones Negative Urine Blood Trace-intact H Urine Nitrate Negative Urine Bilirubin Negative Urine Urobilinogen 0.2 Ur Leukocyte Esterase Trace H Urine RBC 0 - 2 Urine WBC 0 - 2 Ur Epithelial Cells 0 - 2 Urine Bacteria Neg Urine Opiates Screen Urine Methadone Screen Ur Barbiturates Screen Ur Phencyclidine Scrn Ur Amphetamines Screen U Benzodiazepines Scrn U Oth Cocaine Metabols U Cannabinoids Screen Alcohol, Quantitative 05/23/18 05/23/18 05/23/18 21:30 21:30 21:30 WBC RBC Hgb Hct MCV MCH MCHC RDW Plt Count MPV Gran % Lymph % (Auto) [place] % (Auto) Eos % (Auto) Baso % (Auto) Gran # Lymph # (Auto) [place] # (Auto) Eos # (Auto) Baso # (Auto) PT INR APTT Sodium 139 Potassium 3.8 Chloride 96 L Carbon Dioxide 33 Anion Gap 13 BUN 22 H Creatinine 0.6 L Est GFR ( Amer) > 60 Est GFR (Non-Af Amer) > 60 Random Glucose 115 H Calcium 9.6 Phosphorus Magnesium 2.2 Total Bilirubin 0.3 AST 15 ALT 23 Alkaline Phosphatase 85 Troponin I < 0.01 Total Protein 7.5 Albumin 4.2 Globulin 3.3 Albumin/Globulin Ratio 1.3 Triglycerides Cholesterol LDL Cholesterol Direct HDL Cholesterol Lipase 1003 H Urine Color Urine Appearance Urine pH Ur Specific [place] Urine Protein Urine Glucose (UA) Urine Ketones Urine Blood Urine Nitrate Urine Bilirubin Urine Urobilinogen Ur Leukocyte Esterase Urine RBC Urine WBC Ur Epithelial Cells Urine Bacteria Urine Opiates Screen Urine Methadone Screen Ur Barbiturates Screen Ur Phencyclidine Scrn Ur Amphetamines Screen U Benzodiazepines Scrn U Oth Cocaine Metabols U Cannabinoids Screen Alcohol, Quantitative < 10 05/23/18 05/24/18 05/24/18 22:59 04:35 04:35 WBC 12.8 H RBC 4.47 Hgb 14.2 Hct 42.1 MCV 94.2 MCH 31.8 MCHC 33.7 RDW 13.4 Plt Count 300 MPV 10.1 Gran % 55.9 Lymph % (Auto) 34.9 [place] % (Auto) 7.6 H Eos % (Auto) 1.5 Baso % (Auto) 0.1 Gran # 7.19 H Lymph # (Auto) 4.5 H [place] # (Auto) 1.0 H Eos # (Auto) 0.2 Baso # (Auto) 0.01 PT INR APTT Sodium 136 Potassium 3.5 L Chloride 99 Carbon Dioxide 30 Anion Gap 10 BUN 14 Creatinine 0.5 L Est GFR ( Amer) > 60 Est GFR (Non-Af Amer) > 60 Random Glucose 118 H Calcium 8.6 Phosphorus 3.6 Magnesium 2.1 Total Bilirubin 0.4 AST 15 ALT 20 Alkaline Phosphatase 63 Troponin I < 0.01 Total Protein 6.7 Albumin 3.6 Globulin 3.1 Albumin/Globulin Ratio 1.2 Triglycerides 218 H Cholesterol 192 LDL Cholesterol Direct 103 HDL Cholesterol 38 Lipase Urine Color Urine Appearance Urine pH Ur Specific [place] Urine Protein Urine Glucose (UA) Urine Ketones Urine Blood Urine Nitrate Urine Bilirubin Urine Urobilinogen Ur Leukocyte Esterase Urine RBC Urine WBC Ur Epithelial Cells Urine Bacteria Urine Opiates Screen Negative Urine Methadone Screen Negative Ur Barbiturates Screen Negative Ur Phencyclidine Scrn Negative Ur Amphetamines Screen Negative U Benzodiazepines Scrn Negative U Oth Cocaine Metabols Negative U Cannabinoids Screen Negative Alcohol, Quantitative Assessment & Plan - Assessment and Plan (Free Text) Assessment: 38 yo Hisp Female with HTN and recent Samuels's Palsy diagnosis presenting with abd pain. # Abd Pain: Due to acute pancreatitis. Two out of three criteria with typical symptoms and lipase >3xULN, no CT evidence. Unclear trigger as no EtOH and liver test unremarkle. Certainly has risk factors for gallstones with gender, fertility, age, etc. but US negative. Also at risk for HSV induced pancreatitis with recent Samuels's palsy. Lastly, HCTZ has been associated with pancreatitis. Plan: - Clear Liq diet tonight - IVF with LR - Pain control - Make NPO again if pain persists - If symptoms return in future, may need to DC HCTZ Pt discussed with Dr. Newsome. See attestation for further recs/changes. <Theo Newsome - Last Filed: 05/24/18 16:37> Meds - Medications Medications: Current Medications Amlodipine Besylate (Norvasc) 5 mg PO DAILY [facility] Last Admin: 05/24/18 09:26 Dose: 5 mg Hydromorphone HCl (Dilaudid) 1 mg IVP Q4H PRN PRN Reason: Pain, severe (8-10) Last Admin: 05/24/18 15:41 Dose: 1 mg Potassium Chloride 40 meq/ (Dextrose/Lactated Ringer's) 1,020 mls @ 150 mls/hr IV .Q6H48M [facility] Ketorolac Tromethamine (Toradol) 15 mg IVP Q6 PRN PRN Reason: Pain, moderate (4-7) Last Admin: 05/24/18 13:15 Dose: 15 mg Ondansetron HCl (Zofran Inj) 4 mg IVP Q6H PRN PRN Reason: Nausea/Vomiting Last Admin: 05/24/18 09:27 Dose: 4 mg Pantoprazole Sodium (Protonix Inj) 40 mg IVP DAILY [facility] Last Admin: 05/24/18 09:28 Dose: 40 mg Results - Vital Signs Recent Vital Signs: Last Vital Signs Temp 97.8 F 05/24/18 06:00 Pulse 80 05/24/18 09:26 Resp 20 05/24/18 06:00 BP 120/80 05/24/18 09:26 Pulse Ox 99 05/24/18 06:00 - Labs Result Diagrams: 05/24/18 04:35 05/24/18 04:35 Labs: Laboratory Results - last 24 hr 05/23/18 05/23/18 05/23/18 20:40 21:30 21:30 WBC 15.8 H RBC 4.84 Hgb 15.5 Hct 45.9 MCV 94.8 MCH 32.0 MCHC 33.8 RDW 13.6 Plt Count 322 MPV 10.2 Gran % 60.5 Lymph % (Auto) 30.7 [place] % (Auto) 7.6 H Eos % (Auto) 1.1 L Baso % (Auto) 0.1 Gran # 9.56 H Lymph # (Auto) 4.9 H [place] # (Auto) 1.2 H Eos # (Auto) 0.2 Baso # (Auto) 0.01 PT 11.3 INR 0.99 APTT 29.8 Sodium Potassium Chloride Carbon Dioxide Anion Gap BUN Creatinine Est GFR ( Amer) Est GFR (Non-Af Amer) Random Glucose Hemoglobin A1c Calcium Phosphorus Magnesium Total Bilirubin AST ALT Alkaline Phosphatase Troponin I Total Protein Albumin Globulin Albumin/Globulin Ratio Triglycerides Cholesterol LDL Cholesterol Direct HDL Cholesterol Lipase Urine Color Light yellow Urine Appearance Clear Urine pH 6.5 Ur Specific [place] 1.015 Urine Protein Negative Urine Glucose (UA) Negative Urine Ketones Negative Urine Blood Trace-intact H Urine Nitrate Negative Urine Bilirubin Negative Urine Urobilinogen 0.2 Ur Leukocyte Esterase Trace H Urine RBC 0 - 2 Urine WBC 0 - 2 Ur Epithelial Cells 0 - 2 Urine Bacteria Neg Urine Opiates Screen Urine Methadone Screen Ur Barbiturates Screen Ur Phencyclidine Scrn Ur Amphetamines Screen U Benzodiazepines Scrn U Oth Cocaine Metabols U Cannabinoids Screen Alcohol, Quantitative 05/23/18 05/23/18 05/23/18 21:30 21:30 21:30 WBC RBC Hgb Hct MCV MCH MCHC RDW Plt Count MPV Gran % Lymph % (Auto) [place] % (Auto) Eos % (Auto) Baso % (Auto) Gran # Lymph # (Auto) [place] # (Auto) Eos # (Auto) Baso # (Auto) PT INR APTT Sodium 139 Potassium 3.8 Chloride 96 L Carbon Dioxide 33 Anion Gap 13 BUN 22 H Creatinine 0.6 L Est GFR ( Amer) > 60 Est GFR (Non-Af Amer) > 60 Random Glucose 115 H Hemoglobin A1c Calcium 9.6 Phosphorus Magnesium 2.2 Total Bilirubin 0.3 AST 15 ALT 23 Alkaline Phosphatase 85 Troponin I < 0.01 Total Protein 7.5 Albumin 4.2 Globulin 3.3 Albumin/Globulin Ratio 1.3 Triglycerides Cholesterol LDL Cholesterol Direct HDL Cholesterol Lipase 1003 H Urine Color Urine Appearance Urine pH Ur Specific [place] Urine Protein Urine Glucose (UA) Urine Ketones Urine Blood Urine Nitrate Urine Bilirubin Urine Urobilinogen Ur Leukocyte Esterase Urine RBC Urine WBC Ur Epithelial Cells Urine Bacteria Urine Opiates Screen Urine Methadone Screen Ur Barbiturates Screen Ur Phencyclidine Scrn Ur Amphetamines Screen U Benzodiazepines Scrn U Oth Cocaine Metabols U Cannabinoids Screen Alcohol, Quantitative < 10 05/23/18 05/24/18 05/24/18 22:59 04:35 04:35 WBC 12.8 H RBC 4.47 Hgb 14.2 Hct 42.1 MCV 94.2 MCH 31.8 MCHC 33.7 RDW 13.4 Plt Count 300 MPV 10.1 Gran % 55.9 Lymph % (Auto) 34.9 [place] % (Auto) 7.6 H Eos % (Auto) 1.5 Baso % (Auto) 0.1 Gran # 7.19 H Lymph # (Auto) 4.5 H [place] # (Auto) 1.0 H Eos # (Auto) 0.2 Baso # (Auto) 0.01 PT INR APTT Sodium 136 Potassium 3.5 L Chloride 99 Carbon Dioxide 30 Anion Gap 10 BUN 14 Creatinine 0.5 L Est GFR ( Amer) > 60 Est GFR (Non-Af Amer) > 60 Random Glucose 118 H Hemoglobin A1c Calcium 8.6 Phosphorus 3.6 Magnesium 2.1 Total Bilirubin 0.4 AST 15 ALT 20 Alkaline Phosphatase 63 Troponin I < 0.01 Total Protein 6.7 Albumin 3.6 Globulin 3.1 Albumin/Globulin Ratio 1.2 Triglycerides 218 H Cholesterol 192 LDL Cholesterol Direct 103 HDL Cholesterol 38 Lipase Urine Color Urine Appearance Urine pH Ur Specific [place] Urine Protein Urine Glucose (UA) Urine Ketones Urine Blood Urine Nitrate Urine Bilirubin Urine Urobilinogen Ur Leukocyte Esterase Urine RBC Urine WBC Ur Epithelial Cells Urine Bacteria Urine Opiates Screen Negative Urine Methadone Screen Negative Ur Barbiturates Screen Negative Ur Phencyclidine Scrn Negative Ur Amphetamines Screen Negative U Benzodiazepines Scrn Negative U Oth Cocaine Metabols Negative U Cannabinoids Screen Negative Alcohol, Quantitative 05/24/18 05/24/18 04:35 10:15 WBC RBC Hgb Hct MCV MCH MCHC RDW Plt Count MPV Gran % Lymph % (Auto) [place] % (Auto) Eos % (Auto) Baso % (Auto) Gran # Lymph # (Auto) [place] # (Auto) Eos # (Auto) Baso # (Auto) PT INR APTT Sodium Potassium Chloride Carbon Dioxide Anion Gap BUN Creatinine Est GFR ( Amer) Est GFR (Non-Af Amer) Random Glucose Hemoglobin A1c 5.6 Calcium Phosphorus Magnesium Total Bilirubin AST ALT Alkaline Phosphatase Troponin I < 0.01 Total Protein Albumin Globulin Albumin/Globulin Ratio Triglycerides Cholesterol LDL Cholesterol Direct HDL Cholesterol Lipase Urine Color Urine Appearance Urine pH Ur Specific [place] Urine Protein Urine Glucose (UA) Urine Ketones Urine Blood Urine Nitrate Urine Bilirubin Urine Urobilinogen Ur Leukocyte Esterase Urine RBC Urine WBC Ur Epithelial Cells Urine Bacteria Urine Opiates Screen Urine Methadone Screen Ur Barbiturates Screen Ur Phencyclidine Scrn Ur Amphetamines Screen U Benzodiazepines Scrn U Oth Cocaine Metabols U Cannabinoids Screen Alcohol, Quantitative Attending/Attestation - Attestation I have fully participated in the care of the patient.: Yes I have reviewed all pertinent clinical information: Yes Notes (Text): 05/24/18 16:35 HTN Samuels's palsy Abdominal pain - acute pancreatitis of unclear etiology CT imaging reviewed by me showing no focal pancreatic abnormality, US imaging shows no gallstones - Clear liquid diet as tolerated - Continue with supportive care, IVF hydration therapy - Pain control - Potential cause includes HCTZ medication, would hold for time being - Continue to monitor patient clinical course
--- NOTE | 2018-05-24 12:00 | CARD ---
APPROVED REPORT Date of service: 05/23/2018 EKG Measurement Heart [id number] ID [id number] <Conclusion> Sinus tachycardia Otherwise normal ECG
--- NOTE | 2018-05-24 12:42 | RAD ---
Date of service: 05/23/2018 HISTORY: admission COMPARISON: No prior. FINDINGS: LUNGS: No active pulmonary disease. PLEURA: No significant pleural effusion identified, no pneumothorax apparent. CARDIOVASCULAR: No aortic atherosclerotic calcification present. Normal cardiac size. No pulmonary vascular congestion. OSSEOUS STRUCTURES: No significant abnormalities. VISUALIZED UPPER ABDOMEN: Normal. OTHER FINDINGS: None. IMPRESSION: No active disease.
[2018-05-24] MEDS: HYDROmorphone 1 mg/ml ISec IVP PRN ×2 (15:41→20:27)
[2018-05-24] MEDS: Potassium Chloride 40 MEQ in Dextrose 5%/Lactated Ringer's 1,000 ML IV SCH (16:46)
[2018-05-24] MEDS: POLYETHYLENE GLYCOL 3350 17 GM/Dose PACKET PO SCH (19:29)
[2018-05-25 07:12] LABS: BASO # 0.01 K/mm3 (0.0-2.0); BASO % 0.1 % (0.0-3.0); EOS # 0.3 (0.0-0.7); EOS % 2.5 % (1.5-5.0); GRAN # 5.98 (1.4-6.5); HEMOGLOBIN 13.3 g/dL (12.0-16.0); LYMPH # 2.9 (1.2-3.4); LYMPH % 29.3 % (22.0-35.0); MEAN CELL VOLUME 95.1 fl (80.0-105.0); MEAN CORPUSCULAR HEMOGLOBIN 31.3 pg (25.0-35.0); MEAN CORPUSCULAR HGB CONC 32.9 g/dl (31.0-37.0); MEAN PLATELET VOLUME 9.9 fl (7.0-11.0); MONO # 0.8 (0.1-0.6); MONO % 8.1 % (1.0-6.0); RBC 4.25 10^6/uL (3.5-6.1); RED CELL DISTRIBUTION WIDTH 13.5 % (11.5-14.5)
[2018-05-25 07:28] LABS: ALB/GLOB RATIO 1.1 (1.1-1.8); ALBUMIN 3.3 g/dL (3.0-4.8); ALT/SGPT 19 U/L (7-56); AST/SGOT 18 U/L (14-36); BLOOD UREA NITROGEN 10 mg/dL (7-21); CALCIUM 8.5 mg/dL (8.4-10.5); GFR NON-AFRICAN AMERICAN > 60
--- NOTE | 2018-05-25 10:46 | CP.PCM.PN ---
<Niko Munoz - Last Filed: 05/25/18 12:16> Subjective - Date & Time of Evaluation Date of Evaluation: 05/25/18 Time of Evaluation: 08:10 - Subjective Subjective: PGY-4 GI Fellow Consult Note Pt lying in bed when seen this AM. Still with some abd pain with Clear Liq Diet, but pain mildly better than day prior. 5 point ROS negative other than stated above Objective - Vital Signs/Intake and Output Vital Signs (last 24 hours): Temp Pulse Resp BP Pulse Ox 98.2 F 91 H 20 127/94 H 96 05/25/18 06:00 05/25/18 06:00 05/25/18 06:00 05/25/18 06:00 05/25/18 06:00 Intake and Output: 05/25/18 05/25/18 06:59 18:59 Intake Total 2180 Balance 2180 - Medications Medications: Current Medications Amlodipine Besylate (Norvasc) 5 mg PO DAILY [facility] Last Admin: 05/24/18 09:26 Dose: 5 mg Hydromorphone HCl (Dilaudid) 1 mg IVP Q4H PRN PRN Reason: Pain, severe (8-10) Last Admin: 05/24/18 20:27 Dose: 1 mg Potassium Chloride 40 meq/ (Dextrose/Lactated Ringer's) 1,020 mls @ 150 mls/hr IV .Q6H48M [facility] Last Admin: 05/24/18 16:46 Dose: 150 mls/hr Ketorolac Tromethamine (Toradol) 15 mg IVP Q6 PRN PRN Reason: Pain, moderate (4-7) Last Admin: 05/24/18 22:29 Dose: 15 mg Ondansetron HCl (Zofran Inj) 4 mg IVP Q6H PRN PRN Reason: Nausea/Vomiting Last Admin: 05/24/18 09:27 Dose: 4 mg Pantoprazole Sodium (Protonix Inj) 40 mg IVP DAILY [facility] Last Admin: 05/24/18 09:28 Dose: 40 mg Polyethylene Glycol (Miralax) 17 gm PO DAILY [facility] Last Admin: 05/24/18 19:29 Dose: Not Given - Labs Labs: 05/25/18 06:50 05/25/18 06:50 PT 11.3 SECONDS (9.4-12.5) 05/23/18 21:30 INR 0.99 05/23/18 21:30 APTT 29.8 Seconds (25.1-36.5) 05/23/18 21:30 - Constitutional Appears: Well, No Acute Distress - Head Exam Head Exam: ATRAUMATIC Additional comments: +L sided samuels's palsy - Eye Exam Eye Exam: EOMI. absent: Conjunctival injection, Scleral icterus - ENT Exam ENT Exam: Mucous Membranes Moist. absent: Mucous Membranes Dry, Normal External Ear Exam - Respiratory Exam Respiratory Exam: NORMAL BREATHING PATTERN. absent: Accessory Muscle Use, Respiratory Distress - GI/Abdominal Exam GI & Abdominal Exam: Soft, Tenderness (ttp in epigastrum w/o guarding), Normal B owel Sounds. absent: Bruit, Distended, Firm, Guarding, Rigid, Mass, Organomegaly, Pulsatile Mass Assessment and Plan - Assessment and Plan (Free Text) Assessment: 38 yo Hisp Female with HTN and recent Samuels's Palsy diagnosis presenting with abd pain. # Abd Pain: Most likely due to acute pancreatitis. Two out of three criteria wi th typical symptoms and lipase >3xULN, no CT evidence. Unclear trigger as no EtOH and liver test unremarkable. Certainly has risk factors for gallstones with gender, fertility, age, etc. but US negative. Also at risk for HSV induced pancreatitis with recent Samuels's palsy. Lastly, HCTZ has been associated with pancreatitis. Given persistent symptoms, perhaps related to gastric pathology. Plan: - Clear Liq diet - Low Fat diet tonight - If persistent symptoms tomorrow AM, will plan for EGD and repeat CT imaging - NPO at OK in case EGD - IVF with LR, would have continuous fluids running until taking adequate PO - Pain control - PPI daily - If symptoms return in future, may need to DC HCTZ permanently Pt discussed with Dr. Newsome. See attestation for further recs/changes. <Theo Newsome - Last Filed: 05/25/18 16:31> Objective - Vital Signs/Intake and Output Vital Signs (last 24 hours): Temp Pulse Resp BP Pulse Ox 98.1 F 91 H 18 131/93 H 97 05/25/18 14:00 05/25/18 14:00 05/25/18 14:00 05/25/18 14:00 05/25/18 14:00 Intake and Output: 05/25/18 05/25/18 06:59 18:59 Intake Total 2180 Balance 2180 - Medications Medications: Current Medications Amlodipine Besylate (Norvasc) 5 mg PO DAILY [facility] Last Admin: 05/25/18 10:52 Dose: 5 mg Hydromorphone HCl (Dilaudid) 1 mg IVP Q4H PRN PRN Reason: Pain, severe (8-10) Last Admin: 05/25/18 10:50 Dose: 1 mg Potassium Chloride 40 meq/ (Dextrose/Lactated Ringer's) 1,020 mls @ 150 mls/hr IV .Q6H48M [facility] Last Admin: 05/24/18 16:46 Dose: 150 mls/hr Ceftriaxone Sodium (Rocephin 1 Gram Ivpb) 1 gm in 100 mls @ 100 mls/hr IVPB DAILY [facility]; Protocol Last Admin: 05/25/18 14:37 Dose: 100 mls/hr Ketorolac Tromethamine (Toradol) 15 mg IVP Q6 PRN PRN Reason: Pain, moderate (4-7) Last Admin: 05/24/18 22:29 Dose: 15 mg Ondansetron HCl (Zofran Inj) 4 mg IVP Q6H PRN PRN Reason: Nausea/Vomiting Last Admin: 05/24/18 09:27 Dose: 4 mg Pantoprazole Sodium (Protonix Inj) 40 mg IVP DAILY [facility] Last Admin: 05/25/18 10:52 Dose: 40 mg Polyethylene Glycol (Miralax) 17 gm PO DAILY [facility] Last Admin: 05/24/18 19:29 Dose: Not Given - Labs Labs: 05/25/18 06:50 05/25/18 06:50 PT 11.3 SECONDS (9.4-12.5) 05/23/18 21:30 INR 0.99 05/23/18 21:30 APTT 29.8 Seconds (25.1-36.5) 05/23/18 21:30 Attending/Attestation - Attestation I have personally seen and examined this patient.: Yes I have fully participated in the care of the patient.: Yes I have reviewed all pertinent clinical information, including history, physical exam and plan: Yes Notes (Text): 05/25/18 16:27 I have seen and examined patient with GI fellow. No acute events overnight, she is seen resting in bed comfortably, at bedside. She reports ongoing epigastric abdominal pain, though improved compared to yesterday. She denies nausea, vomiting, fever/chills. She was able to tolerate PO liquids without significant difficulty. Review of vitals from today show elevated BP. HTN Samuels's palsy Abdominal pain, acute chemical pancreatitis - Advance diet to low fat as tolerated - Obtain IGG4 level - Continue with supportive care, IVF hydration therapy, pain control - If pain persists, may consider EGD tomorrow to rule out peptic ulcer disease - If not, can likely be discharged with subsequent outpatient follow up and consideration of alternative anti-hypertensive medication
[2018-05-25] MEDS: HYDROmorphone 1 mg/ml ISec IVP PRN ×3 (10:50→20:46)
[2018-05-25] MEDS: cefTRIAXone 1 gm 1 GM/100 ML BAG IVPB SCH (14:37)
--- NOTE | 2018-05-25 16:21 | CP.PCM.PN ---
<Jones Van - Last Filed: 05/25/18 17:52> Subjective - Date & Time of Evaluation Date of Evaluation: 05/25/18 Time of Evaluation: 16:18 - Subjective Subjective: Resident Jones Van DO PGY-[address] Batista Pt was seen and examined this morning at bedside. She states that last night she was started on a CLD. She states that she cant tolerate the diet yet, and though she is hungry her RUQ pain and nausea return when she is eating. She reports that the pain she is having is improving, but is still present upon palpation and continues to radiate to the back. She admits to nausea, but denies vomiting. She also denies fevers, chills, chest pain, SOB, cough, dysuria or hematuria. She has no other acute complaints at this time. Objective - Vital Signs/Intake and Output Vital Signs (last 24 hours): Temp Pulse Resp BP Pulse Ox 98.1 F 91 H 18 131/93 H 97 05/25/18 14:00 05/25/18 14:00 05/25/18 14:00 05/25/18 14:00 05/25/18 14:00 Intake and Output: 05/25/18 05/25/18 06:59 18:59 Intake Total 2180 Balance 2180 - Medications Medications: Current Medications Amlodipine Besylate (Norvasc) 5 mg PO DAILY [facility] Last Admin: 05/25/18 10:52 Dose: 5 mg Hydromorphone HCl (Dilaudid) 1 mg IVP Q4H PRN PRN Reason: Pain, severe (8-10) Last Admin: 05/25/18 10:50 Dose: 1 mg Potassium Chloride 40 meq/ (Dextrose/Lactated Ringer's) 1,020 mls @ 150 mls/hr IV .Q6H48M [facility] Last Admin: 05/24/18 16:46 Dose: 150 mls/hr Ceftriaxone Sodium (Rocephin 1 Gram Ivpb) 1 gm in 100 mls @ 100 mls/hr IVPB DAILY [facility]; Protocol Last Admin: 05/25/18 14:37 Dose: 100 mls/hr Ketorolac Tromethamine (Toradol) 15 mg IVP Q6 PRN PRN Reason: Pain, moderate (4-7) Last Admin: 05/24/18 22:29 Dose: 15 mg Ondansetron HCl (Zofran Inj) 4 mg IVP Q6H PRN PRN Reason: Nausea/Vomiting Last Admin: 05/24/18 09:27 Dose: 4 mg Pantoprazole Sodium (Protonix Inj) 40 mg IVP DAILY [facility] Last Admin: 05/25/18 10:52 Dose: 40 mg Polyethylene Glycol (Miralax) 17 gm PO DAILY [facility] Last Admin: 05/24/18 19:29 Dose: Not Given - Labs Labs: 05/25/18 06:50 05/25/18 06:50 PT 11.3 SECONDS (9.4-12.5) 05/23/18 21:30 INR 0.99 05/23/18 21:30 APTT 29.8 Seconds (25.1-36.5) 05/23/18 21:30 - Constitutional Appears: Well, Non-toxic, No Acute Distress - Head Exam Head Exam: ATRAUMATIC, NORMAL INSPECTION, NORMOCEPHALIC - Eye Exam Eye Exam: EOMI, Normal appearance, PERRL - Respiratory Exam Respiratory Exam: Clear to Ausculation Bilateral, NORMAL BREATHING PATTERN. absent: Rales, Rhonchi, Wheezes - Cardiovascular Exam Cardiovascular Exam: RRR, +S1, +S2. absent: Gallop, Rubs - GI/Abdominal Exam GI & Abdominal Exam: Soft, Tenderness (Present in the LUQ upon light or deep palpation, there is mild tenderness in the RUQ, [place] sign is negative. ), Normal Bowel Sounds. absent: Distended, Firm, Guarding, Rigid - Extremities Exam Extremities Exam: Full ROM, Normal Capillary Refill, Normal Inspection. absent: Calf Tenderness, Pedal Edema, Tenderness - Back Exam Back Exam: NORMAL INSPECTION. absent: CVA tenderness (L), CVA tenderness (R) - Neurological Exam Neurological Exam: Alert, Awake, Oriented x3 - Psychiatric Exam Psychiatric exam: Normal Affect, Normal Mood - Skin Skin Exam: Dry, Intact, Normal Color, Warm Assessment and Plan - Assessment and Plan (Free Text) Assessment: Pt is a 38 yo F with PMHx of HTN, samuels's palsy and chronic back pain from a herniated disc presenting to the ED for epigastric abdominal pain that began at 8am. She failed her initial trial of CLD, and will be followed tomorrow to see if she can tolerate her diet. Per GI, might do EGD or repeat CT depending on how pt is feeling. Plan: 1. Intractable abdominal pain likely 2/2 pancreatitis: - Elevated lipase of 1003, now downtrending to 300 and clinical symptoms of pancreatitis - CT Abd/Pelvis - No acute abdominal/ pelvic pathology - NPO, will reattempt feeding tomorrow based on pts progress - NS @ 150cc/hr - Zofran prn, Dilaudid prn - Abd US - No significant or acute findings gallbladder unremarkable with no stones - GI on consult, Dr. Newsome - GI might do EGD based on pts progression of symptoms overnight 2. Chest pain: Resolved - EKG on admission showed ST at 101bpm with no ST changes - Serial troponins pending, initial troponin <0.01 - Lipid panel - TGs mildly elevated at 218 - A1c - 5.6 - UDS - EtOH <10 3. Leukocytosis likely reactive: - Improved - CXR: No active Disease - U/A is unremarkable 4. Hx of HTN: - Continue norvasc, HCTZ 5. Hx of Samuels's palsy: - Lyme panel pending 6. PPX: GI: protonix DVT: SCD <Lazara Batista - Last Filed: 05/26/18 18:40> Objective - Vital Signs/Intake and Output Vital Signs (last 24 hours): Temp Pulse Resp BP Pulse Ox 98.7 F 95 H 18 133/94 H 96 05/26/18 14:00 05/26/18 16:37 05/26/18 14:00 05/26/18 16:37 05/26/18 14:00 Intake and Output: 05/26/18 05/26/18 06:59 18:59 Intake Total 620 Balance 620 - Labs Labs: 05/26/18 07:15 05/26/18 07:15 PT 11.3 SECONDS (9.4-12.5) 05/23/18 21:30 INR 0.99 05/23/18 21:30 APTT 29.8 Seconds (25.1-36.5) 05/23/18 21:30 Attending/Attestation - Attestation I have personally seen and examined this patient.: Yes I have fully participated in the care of the patient.: Yes I have reviewed all pertinent clinical information, including history, physical exam and plan: Yes Notes (Text): 05/26/18 18:37 Attending note; Patient seen and examined with resident. Patient is still complaining of epigastric pain. Complaining of nausea. Requesting pain medication. Denies any chest pain, shortness of breath. Denies any urinary symptoms. Patient is a 38-year-old female with PMHx of HTN, samuels's palsy and chronic back pain from a herniated disc presenting to the ED for epigastric abdominal pain. Elevated lipase level. Started on clear liquid diet. Abdominal pain is not resolving. Acute pancreatitis; CT did not show any acute pancreatic inflammation. Trial of clear liquids today. GI evaluation appreciated. Hypertension; patient was on hydrocodone thiazide. Stopped. Monitor blood pressure closely. Upon discharge the patient will follow-up with PMD Dr. Fajardo.
[2018-05-25] MEDS: POLYETHYLENE GLYCOL 3350 17 GM/Dose PACKET PO SCH (16:56)
[2018-05-25] MEDS: Potassium Chloride 40 MEQ in Dextrose 5%/Lactated Ringer's 1,000 ML IV SCH (16:57)
[2018-05-26] MEDS: HYDROmorphone 1 mg/ml ISec IVP PRN ×2 (01:01→05:19)
[2018-05-26] MEDS: Potassium Chloride 40 MEQ in Dextrose 5%/Lactated Ringer's 1,000 ML IV SCH (04:28)
[2018-05-26 07:42] LABS: BASO # 0.02 K/mm3 (0.0-2.0); BASO % 0.2 % (0.0-3.0); EOS # 0.4 (0.0-0.7); EOS % 2.7 % (1.5-5.0); GRAN # 9.15 (1.4-6.5); GRAN % 69.5 % (50.0-68.0); HEMOGLOBIN 14.2 g/dL (12.0-16.0); LYMPH # 2.9 (1.2-3.4); LYMPH % 21.6 % (22.0-35.0); MEAN CELL VOLUME 95.7 fl (80.0-105.0); MEAN CORPUSCULAR HEMOGLOBIN 32.1 pg (25.0-35.0); MEAN CORPUSCULAR HGB CONC 33.5 g/dl (31.0-37.0); MONO # 0.8 (0.1-0.6); RBC 4.43 10^6/uL (3.5-6.1); RED CELL DISTRIBUTION WIDTH 13.4 % (11.5-14.5); WHITE BLOOD COUNT 13.2 10^3/uL (4.5-11.0)
[2018-05-26 08:03] LABS: ALB/GLOB RATIO 1.2 (1.1-1.8); ALBUMIN 3.7 g/dL (3.0-4.8); ALT/SGPT 22 U/L (7-56); AST/SGOT 18 U/L (14-36); BLOOD UREA NITROGEN 13 mg/dL (7-21); CALCIUM 8.8 mg/dL (8.4-10.5); GFR NON-AFRICAN AMERICAN > 60
[2018-05-26] MEDS ORDERED: Midazolam 2 MG/2 ML VIAL ONE (09:59)
[2018-05-26] MEDS ORDERED: Propofol 10 mg/ml Inj (20 ML) ONE (09:59)
--- NOTE | 2018-05-26 10:40 | CP.PCM.PN ---
Subjective - Date & Time of Evaluation Date of Evaluation: 05/26/18 Time of Evaluation: 10:38 - Subjective Subjective: Patient seen and examined, resting comfortably. No acute events overnight, she continues to report epigastric tenderness to palpation, though was able to tolerate PO diet for dinner last night. She denies vomiting, diarrhea, fever/chills. S/p EGD today showing mild gastritis. Objective - Vital Signs/Intake and Output Vital Signs (last 24 hours): Temp Pulse Resp BP Pulse Ox 98.9 F 106 H 24 152/96 H 97 05/26/18 09:05 05/26/18 09:05 05/26/18 09:05 05/26/18 09:05 05/26/18 10:12 Intake and Output: 05/26/18 05/26/18 06:59 18:59 Intake Total 620 Balance 620 - Medications Medications: Current Medications Amlodipine Besylate (Norvasc) 5 mg PO DAILY [facility] Last Admin: 05/25/18 10:52 Dose: 5 mg Hydromorphone HCl (Dilaudid) 1 mg IVP Q4H PRN PRN Reason: Pain, severe (8-10) Last Admin: 05/26/18 05:19 Dose: 1 mg Potassium Chloride 40 meq/ (Dextrose/Lactated Ringer's) 1,020 mls @ 150 mls/hr IV .Q6H48M [facility] Last Admin: 05/26/18 04:28 Dose: Not Given Ceftriaxone Sodium (Rocephin 1 Gram Ivpb) 1 gm in 100 mls @ 100 mls/hr IVPB DAILY [facility]; Protocol Last Admin: 05/25/18 14:37 Dose: 100 mls/hr Sodium Chloride (Sodium Chloride 0.9%) 1,000 mls @ 100 mls/hr IV .Q10H [facility] Ketorolac Tromethamine (Toradol) 15 mg IVP Q6 PRN PRN Reason: Pain, moderate (4-7) Last Admin: 05/24/18 22:29 Dose: 15 mg Ondansetron HCl (Zofran Inj) 4 mg IVP Q6H PRN PRN Reason: Nausea/Vomiting Last Admin: 05/24/18 09:27 Dose: 4 mg Pantoprazole Sodium (Protonix Inj) 40 mg IVP DAILY [facility] Last Admin: 05/25/18 10:52 Dose: 40 mg Polyethylene Glycol (Miralax) 17 gm PO DAILY [facility] Last Admin: 05/25/18 16:56 Dose: 17 gm - Labs Labs: 05/26/18 07:15 05/26/18 07:15 PT 11.3 SECONDS (9.4-12.5) 05/23/18 21:30 INR 0.99 05/23/18 21:30 APTT 29.8 Seconds (25.1-36.5) 05/23/18 21:30 Assessment and Plan - Assessment and Plan (Free Text) Assessment: HTN Abdominal pain, acute chemical pancreatitis Plan: - Advance diet as tolerated - Follow up EGD biopsy results - Awaiting IGG4 level - Further management as per medical team, suggest additional outpatient follow up after hospital discharge. No further planned GI intervention, will sign off case. Please reconsult as necessary, thank you.
[2018-05-26] MEDS ORDERED: Sodium Chloride 0.9% 1,000 ML IV SCH (10:45)
[2018-05-26 11:47] VITALS: RESP 18
[2018-05-26] MEDS: cefTRIAXone 1 gm 1 GM/100 ML BAG IVPB SCH (13:48)
[2018-05-26] MEDS: POLYETHYLENE GLYCOL 3350 17 GM/Dose PACKET PO SCH ×2 (13:50→17:23)
[2018-05-26 13:54] LABS: PH,URINE 7.5 (4.7-8.0); URINE BILIRUBIN NEGATIVE (NEGATIVE); URINE BLOOD NEGATIVE (NEGATIVE); URINE GLUCOSE (UA) NEGATIVE (NEGATIVE); URINE LEUKOCYTE ESTERASE TRACE Leu/uL (NEGATIVE); URINE PROTEIN NEGATIVE mg/dL (<30 mg/dL); URINE UROBILINOGEN 0.2 E.U./dL (<1 E.U./dL)
[2018-05-26 13:56] LABS: URINE APPEARANCE CLEAR (CLEAR); URINE COLOR YELLOW (YELLOW)
[2018-05-26 14:02] LABS: URINE EPITHELIAL CELLS 0 - 2 /hpf (0-5); URINE RBC NEGATIVE /hpf (0-2); URINE WBC 0 - 2 /hpf (0-6)
[2018-05-26 16:38] VITALS: BP 133/94; PULSE 95
[2018-05-26 18:10] VITALS: TEMP 98.7; O2SAT 96
--- NOTE | 2018-05-26 18:32 | CP.PCM.DIS ---
<Jones Van - Last Filed: 05/26/18 18:26> Provider - Provider Date of Admission: 05/23/18 21:56 Attending physician: Lazara Batista MD Primary care physician: Kolton Fajardo MD Time Spent in preparation of Discharge (in minutes): 45 Diagnosis - Discharge Diagnosis (1) Acute pancreatitis Status: Acute Hospital Course - Lab Results Lab Results: Micro Results 05/23/18 22:45 Blood-Venous Blood Culture - Preliminary NO GROWTH AFTER 48 HOURS 05/23/18 22:30 Blood-Venous Blood Culture - Preliminary NO GROWTH AFTER 48 HOURS 05/23/18 20:40 Urine,Clean Catch Urine Culture - Final Gram Positive Cocci Most Recent Lab Values WBC 13.2 10^3/uL (4.5-11.0) H D 05/26/18 07:15 RBC 4.43 10^6/uL (3.5-6.1) 05/26/18 07:15 Hgb 14.2 g/dL (12.0-16.0) 05/26/18 07:15 Hct 42.4 % (36.0-48.0) 05/26/18 07:15 MCV 95.7 fl (80.0-105.0) 05/26/18 07:15 MCH 32.1 pg (25.0-35.0) 05/26/18 07:15 MCHC 33.5 g/dl (31.0-37.0) 05/26/18 07:15 RDW 13.4 % (11.5-14.5) 05/26/18 07:15 Plt Count 292 10^3/uL (120.0-450.0) 05/26/18 07:15 MPV 10.0 fl (7.0-11.0) 05/26/18 07:15 Gran % 69.5 % (50.0-68.0) H 05/26/18 07:15 Lymph % (Auto) 21.6 % (22.0-35.0) L 05/26/18 07:15 [place] % (Auto) 6.0 % (1.0-6.0) 05/26/18 07:15 Eos % (Auto) 2.7 % (1.5-5.0) 05/26/18 07:15 Baso % (Auto) 0.2 % (0.0-3.0) 05/26/18 07:15 Gran # 9.15 (1.4-6.5) H 05/26/18 07:15 Lymph # (Auto) 2.9 (1.2-3.4) 05/26/18 07:15 [place] # (Auto) 0.8 (0.1-0.6) H 05/26/18 07:15 Eos # (Auto) 0.4 (0.0-0.7) 05/26/18 07:15 Baso # (Auto) 0.02 K/mm3 (0.0-2.0) 05/26/18 07:15 PT 11.3 SECONDS (9.4-12.5) 05/23/18 21:30 INR 0.99 05/23/18 21:30 APTT 29.8 Seconds (25.1-36.5) 05/23/18 21:30 Sodium 137 mmol/L (132-148) 05/26/18 07:15 Potassium 4.7 mmol/L (3.6-5.0) 05/26/18 07:15 Chloride 100 mmol/L (98-107) 05/26/18 07:15 Carbon Dioxide 30 mmol/L (21-33) 05/26/18 07:15 Anion Gap 12 (10-20) 05/26/18 07:15 BUN 13 mg/dL (7-21) 05/26/18 07:15 Creatinine 0.6 mg/dl (0.7-1.2) L 05/26/18 07:15 Est GFR ( Amer) > 60 05/26/18 07:15 Est GFR (Non-Af Amer) > 60 05/26/18 07:15 Random Glucose 97 mg/dL (70-110) 05/26/18 07:15 Hemoglobin A1c 5.6 % (4.2-6.5) 05/24/18 04:35 Calcium 8.8 mg/dL (8.4-10.5) 05/26/18 07:15 Phosphorus 3.6 mg/dL (2.5-4.5) 05/24/18 04:35 Magnesium 2.1 mg/dL (1.7-2.2) 05/24/18 04:35 Total Bilirubin 0.3 mg/dL (0.2-1.3) 05/26/18 07:15 AST 18 U/L (14-36) 05/26/18 07:15 ALT 22 U/L (7-56) 05/26/18 07:15 Alkaline Phosphatase 68 U/L (38-126) 05/26/18 07:15 Troponin I < 0.01 ng/mL 05/24/18 10:15 Total Protein 7.0 g/dL (5.8-8.3) 05/26/18 07:15 Albumin 3.7 g/dL (3.0-4.8) 05/26/18 07:15 Globulin 3.2 gm/dL 05/26/18 07:15 Albumin/Globulin Ratio 1.2 (1.1-1.8) 05/26/18 07:15 Triglycerides 218 mg/dL (35-160) H 05/24/18 04:35 Cholesterol 192 mg/dL (130-200) 05/24/18 04:35 LDL Cholesterol Direct 103 mg/dL (0-129) 05/24/18 04:35 HDL Cholesterol 38 mg/dL (29-60) 05/24/18 04:35 Lipase 301 U/L (23-300) H 05/25/18 08:30 Urine Color Yellow (YELLOW) 05/26/18 13:35 Urine Appearance Clear (CLEAR) 05/26/18 13:35 Urine pH 7.5 (4.7-8.0) 05/26/18 13:35 Ur Specific [place] 1.015 (1.005-1.035) 05/26/18 13:35 Urine Protein Negative mg/dL (<30 mg/dL) 05/26/18 13:35 Urine Glucose (UA) Negative mg/dL (NEGATIVE) 05/26/18 13:35 Urine Ketones Negative mg/dL (NEGATIVE) 05/26/18 13:35 Urine Blood Negative (NEGATIVE) 05/26/18 13:35 Urine Nitrate Negative (NEGATIVE) 05/26/18 13:35 Urine Bilirubin Negative (NEGATIVE) 05/26/18 13:35 Urine Urobilinogen 0.2 E.U./dL (<1 E.U./dL) 05/26/18 13:35 Ur Leukocyte Esterase Trace Tiffany/uL (NEGATIVE) H 05/26/18 13:35 Urine RBC Negative /hpf (0-2) 05/26/18 13:35 Urine WBC 0 - 2 /hpf (0-6) 05/26/18 13:35 Ur Epithelial Cells 0 - 2 /hpf (0-5) 05/26/18 13:35 Urine Bacteria Neg (NEG) 05/23/18 20:40 Urine HCG, Qual Negative (NEGATIVE) 05/26/18 10:20 Urine Opiates Screen Negative (NEGATIVE) 05/23/18 22:59 Urine Methadone Screen Negative (NEGATIVE) 05/23/18 22:59 Ur Barbiturates Screen Negative (NEGATIVE) 05/23/18 22:59 Ur Phencyclidine Scrn Negative (NEGATIVE) 05/23/18 22:59 Ur Amphetamines Screen Negative (NEGATIVE) 05/23/18 22:59 U Benzodiazepines Scrn Negative (NEGATIVE) 05/23/18 22:59 U Oth Cocaine Metabols Negative (NEGATIVE) 05/23/18 22:59 U Cannabinoids Screen Negative (NEGATIVE) 05/23/18 22:59 Alcohol, Quantitative < 10 mg/dL (0-10) 05/23/18 21:30 Lyme Disease Screen <0.90 index 05/24/18 04:35 - Hospital Course Hospital Course: Upon admission Ms. Childs is a 38 year old female with a past medical history of hypertension, Samuels's palsy, and chronic back pain who presented to the [facility] Emergency Department on 05/23 complaining of epigastric abdominal pain. Patient stated that the pain began that morning, was constant in nature, and radiated to the left upper quadrant and back. On ROS, patient denied chest pain, shortness of breath, fevers headaches, chills, vomiting, urinary complaints, diarrhea, melena, recent trauma, and recent travel. Patient admitted to nausea. Patient stated that home medications included norvasc and HCTZ. Hospital course Pt was being worked up for pancreatitis since due to the pts clinical presentation and elevated lipase levels. Abdominal ultrasound, chest x-ray, and abdomen/pelvis CT were ordered. Ultrasound revealed no significant acute findings. Chest x-ray showed no active disease. Abdomen/pelvis CT showed no acute intra-abdominal findings. Gastroenterology was consulted. Patient was made NPO, lactated ringer's was started, and dilaudid and toradol were given for pain. HCTZ was stopped due to the suspicion of drug induced pancreatitis since no other common causes were found. Norvasc was continued. Zofran was started for nausea, protonix was started for GI prophylaxis, and Miralax was started for constipation. An endoscopy was ordered and revealed mild gastritis. Per gastroenterology's recommendations, patient's diet was advanced. Patient communicated new-onset urinary complaints. Urine culture grew gram positive cocci. Rocephin and azithromycin were given. It was ultimately determined that patient was experiencing an episode of candidal vaginitis, and fluconazole was started. For a complete record of hospital course, please refer to medical record. Upon discharge Patient is to follow-up with primary care doctor, Dr. Fajardo, within 3-5 days of discharge. Patient is to follow-up with a extrusion die coordinator within 2-3 days of discharge. Pt was encourage to stop taking HCTZ and the medication was d/karoline from her home meds list. Pt was informed in the change in medication and was told to follow up with her PMD as to what further recommendations they have for the pt regarding BP meds. Pts BP stable in hospital on just norvasc. Patient is to continue taking norvasc, augmentin, and miralax. These instructions were explained to the patient, and the patient understood and is in agreement with the plan. Pt was also given a 1 time dose of fluconazole in the hospital and is encourage to follow up with her astrobiologist for further treatment if needed. Discharge Exam - Head Exam Head Exam: ATRAUMATIC, NORMAL INSPECTION, NORMOCEPHALIC - Eye Exam Eye Exam: EOMI, Normal appearance, PERRL Pupil Exam: NORMAL ACCOMODATION - Respiratory Exam Respiratory Exam: NORMAL BREATHING PATTERN, UNREMARKABLE. absent: Accessory Muscle Use, Decreased Breath Sounds, Rales, Rhonchi, Wheezes, Respiratory Distress, Stridor - Cardiovascular Exam Cardiovascular Exam: RRR, +S1, +S2. absent: Gallop, Rubs - GI/Abdominal Exam GI & Abdominal Exam: Normal Bowel Sounds, Soft. absent: Tenderness (She admits to soreness but states that her abdominal pain is much better and is no longer radiating to the back on palpation.) - Extremities Exam Extremities exam: normal capillary refill, normal inspection, pedal pulses present - Back Exam Back exam: NORMAL INSPECTION. absent: CVA tenderness (L), CVA tenderness (R) - Neurological Exam Neurological exam: Alert, Oriented x3 - Psychiatric Exam Psychiatric exam: Normal Affect, Normal Mood - Skin Skin Exam: Dry, Intact, Normal Color, Warm Discharge Plan - Discharge Medications Prescriptions: Amoxicillin/Clavulanate [Augmentin 875 MG-125 MG] 1 tab PO BID 5 Days #10 tab Polyethylene Glycol 3350 [Miralax] 17 gm PO DAILY PRN 14 Days #14 packet PRN Reason: Constipation - Follow Up Plan Condition: FAIR Disposition: HOME/ ROUTINE Instructions: Vulvovaginal Yeast Infection, High Fiber Diet, Low Cholesterol, Saturated Fat, and Trans Fat Diet , Constipation, Adult (DC), Pancreatitis (DC), Gastritis (DC) Additional Instructions: Follow up with your primary care doctor Dr Fajardo at [facility] in 3-5 days. Avoid Hydrochlorothiazide. Your blood pressures in the hospital has been well controlled on norvasc, please follow up with your primary care doctor Dr Fajardo for blood pressure checks and need for further BP meds. Your upper endoscopy showed gastritis. Biopsy was taken. Please follow up with Dr. Newsome outpatient regarding the results. You can call his office at . The office address is: [address] [place] [address]. [place] [address]. You were found to have a yeast infection, you were given fluconazole 150 mg one time dose. Please follow up with your astrobiologist in 1 week. You were found to have an infection in your urine, please take the prescribed antibiotic, augmentin, by mouth as directed Please take the miralax as needed if you are having issues with constipation. If you have any new or worsening symptoms, please return to the emergency department. Referrals: Kolton Fajardo MD [Primary Care Provider] - Theo Newsome MD [Staff Provider] - <Lazara Batista - Last Filed: 05/26/18 18:43> Provider - Provider Date of Admission: 05/23/18 21:56 Attending physician: Lazara Batista MD Primary care physician: Kolton Fajardo MD Hospital Course - Lab Results Lab Results: Micro Results 05/23/18 22:45 Blood-Venous Blood Culture - Preliminary NO GROWTH AFTER 48 HOURS 05/23/18 22:30 Blood-Venous Blood Culture - Preliminary NO GROWTH AFTER 48 HOURS 05/23/18 20:40 Urine,Clean Catch Urine Culture - Final Gram Positive Cocci Most Recent Lab Values WBC 13.2 10^3/uL (4.5-11.0) H D 05/26/18 07:15 RBC 4.43 10^6/uL (3.5-6.1) 05/26/18 07:15 Hgb 14.2 g/dL (12.0-16.0) 05/26/18 07:15 Hct 42.4 % (36.0-48.0) 05/26/18 07:15 MCV 95.7 fl (80.0-105.0) 05/26/18 07:15 MCH 32.1 pg (25.0-35.0) 05/26/18 07:15 MCHC 33.5 g/dl (31.0-37.0) 05/26/18 07:15 RDW 13.4 % (11.5-14.5) 05/26/18 07:15 Plt Count 292 10^3/uL (120.0-450.0) 05/26/18 07:15 MPV 10.0 fl (7.0-11.0) 05/26/18 07:15 Gran % 69.5 % (50.0-68.0) H 05/26/18 07:15 Lymph % (Auto) 21.6 % (22.0-35.0) L 05/26/18 07:15 [place] % (Auto) 6.0 % (1.0-6.0) 05/26/18 07:15 Eos % (Auto) 2.7 % (1.5-5.0) 05/26/18 07:15 Baso % (Auto) 0.2 % (0.0-3.0) 05/26/18 07:15 Gran # 9.15 (1.4-6.5) H 05/26/18 07:15 Lymph # (Auto) 2.9 (1.2-3.4) 05/26/18 07:15 [place] # (Auto) 0.8 (0.1-0.6) H 05/26/18 07:15 Eos # (Auto) 0.4 (0.0-0.7) 05/26/18 07:15 Baso # (Auto) 0.02 K/mm3 (0.0-2.0) 05/26/18 07:15 PT 11.3 SECONDS (9.4-12.5) 05/23/18 21:30 INR 0.99 05/23/18 21:30 APTT 29.8 Seconds (25.1-36.5) 05/23/18 21:30 Sodium 137 mmol/L (132-148) 05/26/18 07:15 Potassium 4.7 mmol/L (3.6-5.0) 05/26/18 07:15 Chloride 100 mmol/L (98-107) 05/26/18 07:15 Carbon Dioxide 30 mmol/L (21-33) 05/26/18 07:15 Anion Gap 12 (10-20) 05/26/18 07:15 BUN 13 mg/dL (7-21) 05/26/18 07:15 Creatinine 0.6 mg/dl (0.7-1.2) L 05/26/18 07:15 Est GFR ( Amer) > 60 05/26/18 07:15 Est GFR (Non-Af Amer) > 60 05/26/18 07:15 Random Glucose 97 mg/dL (70-110) 05/26/18 07:15 Hemoglobin A1c 5.6 % (4.2-6.5) 05/24/18 04:35 Calcium 8.8 mg/dL (8.4-10.5) 05/26/18 07:15 Phosphorus 3.6 mg/dL (2.5-4.5) 05/24/18 04:35 Magnesium 2.1 mg/dL (1.7-2.2) 05/24/18 04:35 Total Bilirubin 0.3 mg/dL (0.2-1.3) 05/26/18 07:15 AST 18 U/L (14-36) 05/26/18 07:15 ALT 22 U/L (7-56) 05/26/18 07:15 Alkaline Phosphatase 68 U/L (38-126) 05/26/18 07:15 Troponin I < 0.01 ng/mL 05/24/18 10:15 Total Protein 7.0 g/dL (5.8-8.3) 05/26/18 07:15 Albumin 3.7 g/dL (3.0-4.8) 05/26/18 07:15 Globulin 3.2 gm/dL 05/26/18 07:15 Albumin/Globulin Ratio 1.2 (1.1-1.8) 05/26/18 07:15 Triglycerides 218 mg/dL (35-160) H 05/24/18 04:35 Cholesterol 192 mg/dL (130-200) 05/24/18 04:35 LDL Cholesterol Direct 103 mg/dL (0-129) 05/24/18 04:35 HDL Cholesterol 38 mg/dL (29-60) 05/24/18 04:35 Lipase 301 U/L (23-300) H 05/25/18 08:30 Urine Color Yellow (YELLOW) 05/26/18 13:35 Urine Appearance Clear (CLEAR) 05/26/18 13:35 Urine pH 7.5 (4.7-8.0) 05/26/18 13:35 Ur Specific [place] 1.015 (1.005-1.035) 05/26/18 13:35 Urine Protein Negative mg/dL (<30 mg/dL) 05/26/18 13:35 Urine Glucose (UA) Negative mg/dL (NEGATIVE) 05/26/18 13:35 Urine Ketones Negative mg/dL (NEGATIVE) 05/26/18 13:35 Urine Blood Negative (NEGATIVE) 05/26/18 13:35 Urine Nitrate Negative (NEGATIVE) 05/26/18 13:35 Urine Bilirubin Negative (NEGATIVE) 05/26/18 13:35 Urine Urobilinogen 0.2 E.U./dL (<1 E.U./dL) 05/26/18 13:35 Ur Leukocyte Esterase Trace Tiffany/uL (NEGATIVE) H 05/26/18 13:35 Urine RBC Negative /hpf (0-2) 05/26/18 13:35 Urine WBC 0 - 2 /hpf (0-6) 05/26/18 13:35 Ur Epithelial Cells 0 - 2 /hpf (0-5) 05/26/18 13:35 Urine Bacteria Neg (NEG) 05/23/18 20:40 Urine HCG, Qual Negative (NEGATIVE) 05/26/18 10:20 Urine Opiates Screen Negative (NEGATIVE) 05/23/18 22:59 Urine Methadone Screen Negative (NEGATIVE) 05/23/18 22:59 Ur Barbiturates Screen Negative (NEGATIVE) 05/23/18 22:59 Ur Phencyclidine Scrn Negative (NEGATIVE) 05/23/18 22:59 Ur Amphetamines Screen Negative (NEGATIVE) 05/23/18 22:59 U Benzodiazepines Scrn Negative (NEGATIVE) 05/23/18 22:59 U Oth Cocaine Metabols Negative (NEGATIVE) 05/23/18 22:59 U Cannabinoids Screen Negative (NEGATIVE) 05/23/18 22:59 Alcohol, Quantitative < 10 mg/dL (0-10) 05/23/18 21:30 Lyme Disease Screen <0.90 index 05/24/18 04:35 Attending/Attestation - Attestation I have personally seen and examined this patient.: Yes I have fully participated in the care of the patient.: Yes I have reviewed all pertinent clinical information, including history, physical exam and plan: Yes Notes (Text): 05/26/18 18:40 Attending note; Patient seen and examined with resident. Status post EGD. EGD showed mild gastritis. Biopsies taken. Started on regular diet. Patient is a 38-year-old female with PMHx of HTN, samuels's palsy and chronic back pain from a herniated disc presenting to the ED for epigastric abdominal pain. Elevated lipase level. Started on clear liquid diet. Abdominal pain is not resolving. Acute pancreatitis; CT did not show any acute pancreatic inflammation. Status post EGD. Patient is tolerating diet. Hypertension; patient was on hydrocodone thiazide. [place]-thiazide stopped . started on Norvasc. UA showed gram-positive cocci. Identification is pending. Will be discharged home with Augmentin. Recent history of vaginal candidiasis. Will give one dose of Diflucan. Recent STD workup negative as per patient. Advised to follow-up with BLOWER INSULATOR as outpatient. Upon discharge the patient will follow-up with PMD Dr. Fajardo.
== END 2018-05-26 18:23 | disposition home or self-care (01) | DRG 204 ==
LOC: ED 19:41 → ERH 21:56 → 5RSO 05-24 00:57
PROVIDERS: ADMIT Internal Medicine; ATTEND Internal Medicine
DX: K85.80 Other acute pancreatitis without necrosis or infection (principal); B37.3 Candidiasis of vulva and vagina; G51.0 Bell's palsy; I10 Essential (primary) hypertension; J45.909 Unspecified asthma, uncomplicated; K29.70 Gastritis, unspecified, without bleeding; K59.00 Constipation, unspecified

== ENCOUNTER 2018-12-07 14:38 | Emergency (ER) | payer MEDICAID ==
[2018-12-07 15:09] VITALS: TEMP 98.6; BMI 32.3
[2018-12-07] MEDS ORDERED: Amoxicillin-Clav 875-125 mg Tab PO STA (15:46)
[2018-12-07 16:26] LABS: BASO # 0.02 K/mm3 (0.0-2.0); BASO % 0.2 % (0.0-3.0); EOS # 0.2 (0.0-0.7); EOS % 2.2 % (1.5-5.0); HEMOGLOBIN 14.1 g/dL (12.0-16.0); LYMPH # 1.9 (1.2-3.4); LYMPH % 21.7 % (22.0-35.0); MEAN CELL VOLUME 92.5 fl (80.0-105.0); MEAN CORPUSCULAR HEMOGLOBIN 31.9 pg (25.0-35.0); MEAN CORPUSCULAR HGB CONC 34.5 g/dl (31.0-37.0); MEAN PLATELET VOLUME 10.2 fl (7.0-11.0); MONO # 0.7 (0.1-0.6); RBC 4.42 10^6/uL (3.5-6.1); RED CELL DISTRIBUTION WIDTH 13.6 % (11.5-14.5)
[2018-12-07 16:33] LABS: ALB/GLOB RATIO 1.4 (1.1-1.8); ALBUMIN 4.5 g/dL (3.0-4.8); BLOOD UREA NITROGEN 10 mg/dL (7-21); CALCIUM 9.5 mg/dL (8.4-10.5); GFR NON-AFRICAN AMERICAN > 60
[2018-12-07 16:34] LABS: ALT/SGPT 23 U/L (7-56); AST/SGOT 19 U/L (14-36)
--- NOTE | 2018-12-07 17:07 | ED PDOC ---
Arrival/HPI - General Chief Complaint: ENT Problem Time Seen by Provider: 12/07/18 14:50 Historian: Patient - History of Present Illness Narrative History of Present Illness (Text): 12/07/18 17:04 38-year-old female presents today with a 4-day history of painful lump to the throat. Patient also states that she has a rash to the left side of the chin/lower lip for the past 6 days. Patient denies fevers or chills. No trismus or drooling. 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 Patient states that she thinks that the lump underneath her chin has actually been present for almost 4 years. Patient states at times it is painful. Patient states she is noticed its increased in size. No medications have been taken for pain. No other complaints Past Medical History - Provider Review Nursing Documentation Reviewed: Yes - Travel History Have you recently traveled outside [place] w/in the past 3 mons?: No - Cardiac Hx Cardiac Disorders: Yes Hx Hypertension: Yes - Pulmonary Hx Respiratory Disorders: Yes Hx Asthma: Yes - Neurological Hx Neurological Disorder: No - HEENT Hx HEENT Disorder: No - Renal Hx Renal Disorder: No - Endocrine/Metabolic Hx Endocrine Disorders: No - Hematological/Oncological Hx Blood Disorders: No - Integumentary Hx Dermatological Disorder: No - Musculoskeletal/Rheumatological Hx Musculoskeletal Disorders: Yes Hx Back Pain: Yes - Gastrointestinal Hx Gastrointestinal Disorders: Yes Hx Constipation: Yes - Genitourinary/Gynecological Hx Genitourinary Disorders: No - Psychiatric Hx Psychophysiologic Disorder: No Hx Substance Use: No - Surgical History Hx Hysterectomy: Yes Other/Comment: TUMMY TUCK; liposuction - Anesthesia Hx Anesthesia Reactions: No Hx Malignant Hyperthermia: No Family/Social History - Physician Review Nursing Documentation Reviewed: Yes Family/Social History: Unknown Family HX Smoking Status: Never Smoked Hx Alcohol Use: No Hx Substance Use: No Allergies/Home Meds Allergies/Adverse Reactions: Allergies No Known Allergies Allergy (Verified 09/06/17 15:44) Home Medications: Home Meds Medication Instructions Recorded Confirmed amLODIPine [Norvasc] 5 mg PO DAILY 05/23/18 05/23/18 Review of Systems - Review of Systems Constitutional: absent: Fatigue, Fevers ENT: absent: Sore Throat, Sinus Congestion Respiratory: absent: SOB, Cough Cardiovascular: absent: Chest Pain, Palpitations Gastrointestinal: absent: Abdominal Pain, Nausea, Vomiting Genitourinary Female: absent: Dysuria, Frequency, Hematuria Musculoskeletal: absent: Arthralgias, Back Pain, Neck Pain Skin: Rash Neurological: absent: Headache, Dizziness Hemo/Lymphatic: Adenopathy Psychiatric: absent: Anxiety, Depression Physical Exam Vital Signs Reviewed: Yes Vital Signs Temp Pulse Resp BP Pulse Ox 12/07/18 14:42 98.6 F 104 H 18 135/89 97 Temperature: Afebrile Blood Pressure: Normal Pulse: Tachycardic Respiratory Rate: Normal Appearance: Positive for: Well-Appearing, Non-Toxic, Comfortable Pain Distress: None Mental Status: Positive for: Alert and Oriented X 3 - Systems Exam Head: Present: Atraumatic, Other (there are 3 areas of erythema located to the left side of the chin just inferior to the lower lip with multiple scabbed over pinpoint lesions. ) Pupils: Present: PERRL Extroacular Muscles: Present: EOMI Conjunctiva: Present: Normal Ears: Present: Normal, NORMAL TM Mouth: Present: Moist Mucous Membranes Pharnyx: Present: Normal. No: ERYTHEMA, EXUDATE, TONSILS ENLARGED, Peritonsilar Swelling, Uvular Deviation, Muffled/Hoarse Voice Nose (External): Present: Atraumatic Nose (Internal): Present: Normal Inspection Neck: Present: Normal Range of Motion, MIDLINE TENDERNESS, Paraspinal Tenderness, Lymphadenopathy (there is a small grape sized tender mass noted to the left submental region of the neck. no erythema; no warmth. ) Respiratory/Chest: Present: Clear to Auscultation, Good Air Exchange. No: Respiratory Distress, Accessory Muscle Use Cardiovascular: Present: Regular Rate and Rhythm, Normal S1, S2. No: Murmurs Back: Present: Normal Inspection Upper Extremity: Present: Normal ROM Lower Extremity: Present: Normal ROM Neurological: Present: GCS=15, Speech Normal Skin: Present: Warm, Dry, Normal Color. No: Rashes Psychiatric: Present: Alert, Oriented x 3 Medical Decision Making ED Course and Treatment: 12/07/18 17:08 38-year-old female with rash and lymphadenopathy. pt is non toxic well appearing; no distress. stable vitals. cbc; wnl cmp; wnl pt with rash to the left side of the chin - most likely herpetic. present for 6 days. pt with tender mass located to the left sub mental region of the neck; reactive lymphadenopathy vs mass. pt was advised to take augmentin twice daily x 7 days and f/u with ENT/PMD for further evaluation of mass. pt was advised that it is possible that this is a cancerous mass and needs to be worked up further. Patient verbalizes understanding of discharge instructions and need for immediate followup regarding the possible mass to the neck. All aspects of this case were discussed the attending of record. Impression: Rash, neck mass, lymphadenitis Motrin every 6 hours as needed for pain Augmentin twice daily x7 days Follow-up with ENT specialist within the next 2 days Follow-up with primary care physician within the next 2 days Return immediately if symptoms worsen persist or if new concerning symptoms develop Please Follow up [facility] with PMD and ENT regarding neck mass. - Lab Interpretations Lab Results: Total Bilirubin 0.4 mg/dL (0.2-1.3) 12/07/18 15:59 AST 19 U/L (14-36) 12/07/18 15:59 ALT 23 U/L (7-56) 12/07/18 15:59 Alkaline Phosphatase 67 U/L (38-126) 12/07/18 15:59 Total Protein 7.7 g/dL (5.8-8.3) 12/07/18 15:59 Albumin 4.5 g/dL (3.0-4.8) 12/07/18 15:59 Globulin 3.3 gm/dL 12/07/18 15:59 Albumin/Globulin Ratio 1.4 (1.1-1.8) 12/07/18 15:59 - Medication Orders Current Medication Orders: Discontinued Medications Amoxicillin/Clavulanate Potassium (Augmentin 875 Mg-125 Mg Tab) 1 tab PO STAT STA; Protocol Stop: 12/07/18 15:47 Last Admin: 12/07/18 15:52 Dose: 1 tab Disposition/Present on Arrival - Present on Arrival Any Indicators Present on Arrival: No History of DVT/PE: No History of Uncontrolled Diabetes: No Urinary Catheter: No History of Decub. Ulcer: No History Surgical Site Infection Following: None - Disposition Have Diagnosis and Disposition been Completed?: Yes Diagnosis: Rash, Mass in neck, Lymphadenitis Disposition: HOME/ ROUTINE Disposition Time: 16:30 Patient Plan: Discharge Condition: GOOD Discharge Instructions (ExitCare): Skin Rash, Lymphadenitis Additional Instructions: Motrin every 6 hours as needed for pain Augmentin twice daily x7 days Follow-up with ENT specialist within the next 2 days Follow-up with primary care physician within the next 2 days Return immediately if symptoms worsen persist or if new concerning symptoms develop Please follow up [facility] with ENT and PMD regarding neck mass. Prescriptions: Amoxicillin/Clavulanate [Augmentin 875 MG-125 MG] 1 tab PO BID #14 tab Ibuprofen [Motrin] 600 mg PO Q6H PRN #20 tab PRN Reason: pain/fever reduction Referrals: Bud Fry DO [Staff Provider] - Follow up with primary Vivien Cooper MD [Medical Doctor] - Follow up with primary [facility] [Outside] - Follow up with primary Forms: [employer] (Arabic), WORK NOTE
[2018-12-07 17:24] VITALS: BP 130/82; PULSE 92; RESP 16; O2SAT 99
== END 2018-12-07 17:28 | disposition home or self-care (01) ==
LOC: ED 14:38
DX: R21 Rash and other nonspecific skin eruption (principal); R22.1 Localized swelling, mass and lump, neck; I88.9 Nonspecific lymphadenitis, unspecified; I10 Essential (primary) hypertension